=== PATIENT | female | born 1970 | race Caucasian/White ===

== ENCOUNTER 2021-05-23 22:07 | Observation (INO) | payer OTHER ==
[~2021-05-23] VITALS: Ht 162.5 cm; Wt 87.2 kg
[2021-05-23 22:10] VITALS: BP 124/64
[2021-05-23 22:33] LABS: BASO # 0.1 10*3/uL (0.0-0.1); BASO % 0.5 % (0.0-1.0); EOS # 0.6 10*3/uL (0.0-0.4); EOS % 4.1 % (1.0-4.0); HEMATOCRIT 38.4 % (37.0-47.0); LYMPH # 2.7 10*3/uL (1.3-4.4); LYMPH % 18.8 % (27.0-41.0); MEAN CELL VOLUME 93.4 fl (81.0-99.0); MEAN CORPUSCULAR HGB 28.7 pg (27.0-31.0); MEAN CORPUSCULAR HGB CONC 30.7 g/dl (33.0-37.0); MONO % 6.5 % (3.0-9.0); NEUT # 10.1 10*3/uL (2.3-7.9); NEUT % 69.3 % (47.0-73.0); PLATELET COUNT AUTOMATED 476 10*3/uL (130-400); RED BLOOD COUNT 4.11 10*6/uL (4.10-5.10); RED CELL DISTRI WIDTH 14.1 % (0-14.5); WHITE BLOOD COUNT 14.6 10*3/uL (4.8-10.8)
[2021-05-23 22:48] LABS: ACT PARTIAL THROMBO TIME 23.4 SECONDS (20.0-32.1)
[2021-05-23 22:57] LABS: ALBUMIN 2.7 gm/dl (3.1-4.5); ALKALINE PHOSPHATASE 117 U/L (45-117); BUN 19 mg/dl (7-24); CHLORIDE 107 mmol/L (98-107); CREATININE 0.97 mg/dL (0.55-1.02); POTASSIUM 3.6 mmol/L (3.5-5.1); SGOT/AST 7 IU/L (3-35); SGPT/ALT 17 U/L (12-78); SODIUM 142 mmol/L (136-145); TOTAL PROTEIN 6.8 gm/dL (6.4-8.2)
[2021-05-24] VITALS (7 sets, daily range): BP systolic 95–126; BP diastolic 44–80
[2021-05-24] MEDS ORDERED: NEURONTIN300 MG PO ×2 (05:16→05:18)
[2021-05-24] MEDS ORDERED: ATORVASTATIN CA40 M1 PO (05:17)
[2021-05-24] MEDS ORDERED: HYDROXYZINE HCL25 MG PO (05:18)
[2021-05-24] MEDS ORDERED: SERTRALINE HYD100 MG PO (05:18)
[2021-05-24] MEDS ORDERED: METFORMIN HYDR500 MG PO (05:18)
[2021-05-24] MEDS ORDERED: RISPERIDONE2 M2 PO (05:19)
[2021-05-24] MEDS ORDERED: PROAIR HFA8.5 GM INH (05:20)
[2021-05-24] MEDS ORDERED: BUDESONIDE-FO10.2 G1 PO (05:20)
[2021-05-24 06:54] LABS: BASO # 0.1 10*3/uL (0.0-0.1); BASO % 0.4 % (0.0-1.0); EOS # 0.5 10*3/uL (0.0-0.4); EOS % 3.3 % (1.0-4.0); HEMATOCRIT 34.5 % (37.0-47.0); LYMPH # 3.6 10*3/uL (1.3-4.4); LYMPH % 21.6 % (27.0-41.0); MEAN CELL VOLUME 92.7 fl (81.0-99.0); MEAN CORPUSCULAR HGB 28.8 pg (27.0-31.0); MEAN PLATELET VOLUME 9.5 fl (9.6-12.3); MONO # 1.1 10*3/uL (0.1-1.0); MONO % 6.9 % (3.0-9.0); NEUT # 11.1 10*3/uL (2.3-7.9); NEUT % 67.1 % (47.0-73.0); PLATELET COUNT AUTOMATED 466 10*3/uL (130-400); RED BLOOD COUNT 3.72 10*6/uL (4.10-5.10); RED CELL DISTRI WIDTH 14.3 % (0-14.5); WHITE BLOOD COUNT 16.5 10*3/uL (4.8-10.8)
[2021-05-24 07:07] LABS: ALBUMIN 2.5 gm/dl (3.1-4.5); ALKALINE PHOSPHATASE 104 U/L (45-117); BUN 17 mg/dl (7-24); CHLORIDE 106 mmol/L (98-107); CHOLESTEROL 116 mg/dL (<200); CREATININE 0.81 mg/dL (0.55-1.02); LDL CHOLESTEROL 46 mg/dL (9-159); POTASSIUM 3.6 mmol/L (3.5-5.1); SGOT/AST 7 IU/L (3-35); SGPT/ALT 15 U/L (12-78); SODIUM 141 mmol/L (136-145); TOTAL PROTEIN 6.3 gm/dL (6.4-8.2); TRIGLYCERIDES 142 mg/dl (<150)
[2021-05-24 07:08] LABS: FREE T4 0.91 ng/dl (0.76-1.46)
[2021-05-24 08:12] LABS: VITAMIN D, 25-HYDROXY 37.2 ng/mL (30-100)
[2021-05-24] MEDS ORDERED: ZONISAMIDE100 MG PO (09:08)
[2021-05-25] VITALS: BP 118/70
[2021-05-25 07:23] LABS: BASO # 0.1 10*3/uL (0.0-0.1); BASO % 0.5 % (0.0-1.0); EOS # 0.3 10*3/uL (0.0-0.4); EOS % 1.6 % (1.0-4.0); HEMATOCRIT 35.8 % (37.0-47.0); LYMPH # 3.4 10*3/uL (1.3-4.4); LYMPH % 21.3 % (27.0-41.0); MEAN CELL VOLUME 95.7 fl (81.0-99.0); MEAN CORPUSCULAR HGB 28.3 pg (27.0-31.0); MEAN CORPUSCULAR HGB CONC 29.6 g/dl (33.0-37.0); MEAN PLATELET VOLUME 9.3 fl (9.6-12.3); MONO # 1.3 10*3/uL (0.1-1.0); NEUT # 10.9 10*3/uL (2.3-7.9); PLATELET COUNT AUTOMATED 440 10*3/uL (130-400); RED BLOOD COUNT 3.74 10*6/uL (4.10-5.10); RED CELL DISTRI WIDTH 14.2 % (0-14.5)
[2021-05-25 07:42] LABS: BUN 19 mg/dl (7-24); CHLORIDE 108 mmol/L (98-107); CREATININE 0.74 mg/dL (0.55-1.02); POTASSIUM 3.8 mmol/L (3.5-5.1); SODIUM 139 mmol/L (136-145)
[2021-05-25 08:00] VITALS: BP 139/79
[2021-05-25] MEDS ORDERED: PREDNISONE10 MG PO (11:38)
[2021-05-25] MEDS ORDERED: ZITHROMAX250 MG PO (11:38)
[2021-05-25] MEDS ORDERED: OMNICEF300 MG PO (11:38)
[2021-05-25 12:00] VITALS: BP 123/72
== END 2021-05-25 18:17 | disposition home or self-care (01) ==
LOC: ED 22:07 → EDHOLD 05-24 04:26 → 4E 05-24 04:26
PROVIDERS: Emergency Medicine; Internal Medicine; ADMIT Family Medicine; ATTEND Family Medicine
DX: A41.9 Sepsis, unspecified organism (principal); J44.1 Chronic obstructive pulmonary disease with (acute) exacerbation; J18.9 Pneumonia, unspecified organism; D72.829 Elevated white blood cell count, unspecified; E43 Unspecified severe protein-calorie malnutrition; Z20.822 Contact with and (suspected) exposure to COVID-19; R00.0 Tachycardia, unspecified; R06.82 Tachypnea, not elsewhere classified; D64.9 Anemia, unspecified; D75.839 Thrombocytosis, unspecified; R79.89 Other specified abnormal findings of blood chemistry; F17.210 Nicotine dependence, cigarettes, uncomplicated; E11.65 Type 2 diabetes mellitus with hyperglycemia; G40.909 Epilepsy, unspecified, not intractable, without status epilepticus; F32.9 Major depressive disorder, single episode, unspecified; F32.A Depression, unspecified; E53.8 Deficiency of other specified B group vitamins; Z68.33 Body mass index [BMI] 33.0-33.9, adult; Z71.6 Tobacco abuse counseling; Z79.899 Other long term (current) drug therapy; Z79.01 Long term (current) use of anticoagulants

== ENCOUNTER 2021-06-10 22:17 | Emergency (ER) | payer OTHER ==
[~2021-06-10] VITALS: Ht 165.1 cm; Wt 88.0 kg
[~2021-06-10 22:17] MED LIST: ATORVASTATIN CA40 M1 PO; BUDESONIDE-FO10.2 G1 PO; HYDROXYZINE HCL25 MG PO; METFORMIN HYDR500 MG PO; NEURONTIN300 MG PO; OMNICEF300 MG PO; PREDNISONE10 MG PO; PROAIR HFA8.5 GM INH; RISPERIDONE2 M2 PO; SERTRALINE HYD100 MG PO; ZITHROMAX250 MG PO; ZONISAMIDE100 MG PO
[2021-06-10 22:38] LABS: BASO # 0.1 10*3/uL (0.0-0.1); BASO % 0.5 % (0.0-1.0); EOS # 0.6 10*3/uL (0.0-0.4); EOS % 4.6 % (1.0-4.0); HEMATOCRIT 35.5 % (37.0-47.0); LYMPH # 2.4 10*3/uL (1.3-4.4); LYMPH % 19.5 % (27.0-41.0); MEAN CELL VOLUME 95.4 fl (81.0-99.0); MEAN CORPUSCULAR HGB 28.8 pg (27.0-31.0); MEAN CORPUSCULAR HGB CONC 30.1 g/dl (33.0-37.0); MEAN PLATELET VOLUME 9.3 fl (9.6-12.3); MONO % 8.2 % (3.0-9.0); NEUT # 8.2 10*3/uL (2.3-7.9); NEUT % 66.8 % (47.0-73.0); PLATELET COUNT AUTOMATED 446 10*3/uL (130-400); RED BLOOD COUNT 3.72 10*6/uL (4.10-5.10); RED CELL DISTRI WIDTH 13.9 % (0-14.5); WHITE BLOOD COUNT 12.3 10*3/uL (4.8-10.8)
[2021-06-10 22:51] LABS: BUN 12 mg/dl (7-24); CHLORIDE 107 mmol/L (98-107); POTASSIUM 4.1 mmol/L (3.5-5.1); SODIUM 143 mmol/L (136-145)
[2021-06-11] MEDS ORDERED: PREDNISONE20 M1 PO (02:24)
[2021-06-11] MEDS ORDERED: ZITHROMAX250 MG PO (02:24)
== END 2021-06-11 04:42 | disposition home or self-care (01) ==
LOC: ED 22:17
PROVIDERS: Internal Medicine
DX: J44.1 Chronic obstructive pulmonary disease with (acute) exacerbation (principal); D72.829 Elevated white blood cell count, unspecified; D64.9 Anemia, unspecified; F17.200 Nicotine dependence, unspecified, uncomplicated; Z91.030 Bee allergy status; Z88.2 Allergy status to sulfonamides; Z79.899 Other long term (current) drug therapy

== ENCOUNTER 2022-08-13 15:45 | Emergency (ER) | payer OTHER ==
[~2022-08-13] VITALS: Ht 165.1 cm; Wt 99.3 kg
[~2022-08-13 15:45] MED LIST changes: +PREDNISONE20 M1 PO
[2022-08-13 16:34] LABS: BASO # 0.1 10*3/uL (0.0-0.1); BASO % 0.5 % (0.0-1.0); EOS # 0.7 10*3/uL (0.0-0.4); EOS % 6.3 % (1.0-4.0); HEMATOCRIT 33.1 % (37.0-47.0); LYMPH # 2.3 10*3/uL (1.3-4.4); LYMPH % 19.6 % (27.0-41.0); MEAN CELL VOLUME 97.1 fl (81.0-99.0); MEAN CORPUSCULAR HGB 27.6 pg (27.0-31.0); MEAN CORPUSCULAR HGB CONC 28.4 g/dl (33.0-37.0); MEAN PLATELET VOLUME 9.3 fl (9.6-12.3); MONO # 0.9 10*3/uL (0.1-1.0); MONO % 7.9 % (3.0-9.0); NEUT # 7.5 10*3/uL (2.3-7.9); NEUT % 64.5 % (47.0-73.0); PLATELET COUNT AUTOMATED 405 10*3/uL (130-400); RED BLOOD COUNT 3.41 10*6/uL (4.10-5.10); RED CELL DISTRI WIDTH 15.9 % (0-14.5); WHITE BLOOD COUNT 11.6 10*3/uL (4.8-10.8)
[2022-08-13 16:51] LABS: ALKALINE PHOSPHATASE 118 U/L (46-116); BUN < 5 mg/dl (9-23); CHLORIDE 102 mmol/L (98-107); POTASSIUM 3.7 mmol/L (3.4-5.1); SGPT/ALT 10 U/L (10-49); TOTAL PROTEIN 5.7 gm/dL (6.0-8.0)
[2022-08-13] MEDS ORDERED: CEFDINIR300 MG PO (19:38)
[2022-08-13] MEDS ORDERED: PROVENTIL HFA6.7 GM PO (19:38)
[2022-08-13] MEDS ORDERED: Ondansetron4 MG PO (19:38)
[2022-08-13 19:46] LABS: BILIRUBIN Negative (Negative); BLOOD 2+ (Negative); CLARITY Turbid (Clear); COLOR Yellow (Yellow); GLUCOSE Negative (Negative); KETONE Negative (Negative); LEUKO ESTERASE 3+ (Negative); NITRITE Positive (Negative); PH 5.5 (4.5-8.0); UROBILINOGEN 0.2 E.U./dl (0.0-1.0)
[2022-08-13 19:53] LABS: BACTERIA 4+; EPITHELIAL CELLS 0-2; WBC TNTC wbc/hpf (0-5)
== END 2022-08-13 20:06 | disposition home or self-care (01) ==
LOC: ED 15:45
PROVIDERS: Student in an Organized Health Care Education/Training Program
DX: R30.0 Dysuria (principal); R11.2 Nausea with vomiting, unspecified; J44.9 Chronic obstructive pulmonary disease, unspecified; E11.9 Type 2 diabetes mellitus without complications; Z91.030 Bee allergy status; Z88.2 Allergy status to sulfonamides; Z90.49 Acquired absence of other specified parts of digestive tract; F17.200 Nicotine dependence, unspecified, uncomplicated

== ENCOUNTER 2022-12-07 15:47 | Inpatient (IN) | payer OTHER ==
[~2022-12-07] VITALS: Ht 162.5 cm; Wt 87.3 kg
[~2022-12-07 15:47] MED LIST changes: +CEFDINIR300 MG PO; +Ondansetron4 MG PO; +PROVENTIL HFA6.7 GM PO
[2022-12-07 15:51] VITALS: BP 108/74
[2022-12-07 16:12] LABS: BASO % 0.3 % (0.0-1.0); EOS # 0.3 10*3/uL (0.0-0.4); EOS % 3.4 % (1.0-4.0); HEMATOCRIT 33.8 % (37.0-47.0); LYMPH # 0.8 10*3/uL (1.3-4.4); LYMPH % 8.2 % (27.0-41.0); MEAN CELL VOLUME 100.3 fl (81.0-99.0); MEAN CORPUSCULAR HGB CONC 29.9 g/dl (33.0-37.0); MEAN PLATELET VOLUME 9.2 fl (9.6-12.3); MONO # 0.7 10*3/uL (0.1-1.0); MONO % 7.5 % (3.0-9.0); NEUT # 7.7 10*3/uL (2.3-7.9); NEUT % 80.1 % (47.0-73.0); PLATELET COUNT AUTOMATED 332 10*3/uL (130-400); RED BLOOD COUNT 3.37 10*6/uL (4.10-5.10); RED CELL DISTRI WIDTH 14.7 % (0-14.5); WHITE BLOOD COUNT 9.7 10*3/uL (4.8-10.8)
[2022-12-07 16:25] LABS: ACT PARTIAL THROMBO TIME 22.2 SECONDS (20.0-32.1)
[2022-12-07 16:36] LABS: ALKALINE PHOSPHATASE 93 U/L (46-116); CHLORIDE 105 mmol/L (98-107); LIPASE 26 U/L (12-53); POTASSIUM 3.9 mmol/L (3.4-5.1); SGPT/ALT 17 U/L (10-49); TOTAL PROTEIN 5.6 gm/dL (6.0-8.0)
[2022-12-07 16:39] LABS: BUN < 5 mg/dl (9-23)
[2022-12-07 17:01] VITALS: BP 117/75
[2022-12-07 18:11] VITALS: BP 110/71
[2022-12-07] MEDS ORDERED: IRON325 M3 PO (18:44)
[2022-12-07 19:12] VITALS: BP 129/88
[2022-12-08] VITALS: BP 150/88
[2022-12-08 05:50] LABS: VITAMIN D, 25-HYDROXY 24.4 ng/mL (30-100)
[2022-12-08 06:27] LABS: HEMATOCRIT 35.2 % (37.0-47.0); MEAN CORPUSCULAR HGB 30.1 pg (27.0-31.0); MEAN CORPUSCULAR HGB CONC 30.1 g/dl (33.0-37.0); MEAN PLATELET VOLUME 9.8 fl (9.6-12.3); PLATELET COUNT AUTOMATED 360 10*3/uL (130-400); RED BLOOD COUNT 3.52 10*6/uL (4.10-5.10); RED CELL DISTRI WIDTH 14.7 % (0-14.5); WHITE BLOOD COUNT 6.4 10*3/uL (4.8-10.8)
[2022-12-08 06:28] LABS: MANUAL DIFF REFLEX YES
[2022-12-08 06:39] LABS: BUN 7 mg/dl (9-23); CHLORIDE 100 mmol/L (98-107); CHOLESTEROL 112 mg/dL (<200); FREE T4 1.12 ng/dl (0.89-1.76); LDL CHOLESTEROL 40 mg/dL (9-159); POTASSIUM 4.6 mmol/L (3.4-5.1); THYROID STIM HORMONE (HS) 0.427 uIU/ml (0.550-4.780); TRIGLYCERIDES 54 mg/dl (<150)
[2022-12-08 07:08] LABS: BASOPHILS 1 % (0-1); TOTAL CELLS COUNTED 100 #CELLS
[2022-12-08 07:09] LABS: OVALOCYTES FEW; PLATELET SUFFICIENCY NORMAL (NORMAL); POLYCHROMASIA SLIGHT
[2022-12-08 08:00] VITALS: BP 135/76
[2022-12-08 12:00] VITALS: BP 145/98
[2022-12-08 16:00] VITALS: BP 134/78
[2022-12-08 20:00] VITALS: BP 133/76
[2022-12-09] VITALS: BP 136/72
[2022-12-09 05:33] LABS: BUN 13 mg/dl (9-23); CHLORIDE 101 mmol/L (98-107); POTASSIUM 4.7 mmol/L (3.4-5.1)
[2022-12-09 06:24] LABS: BASO % 0.1 % (0.0-1.0); HEMATOCRIT 35.2 % (37.0-47.0); LYMPH # 0.6 10*3/uL (1.3-4.4); LYMPH % 6.1 % (27.0-41.0); MEAN CELL VOLUME 98.9 fl (81.0-99.0); MEAN CORPUSCULAR HGB 29.5 pg (27.0-31.0); MEAN CORPUSCULAR HGB CONC 29.8 g/dl (33.0-37.0); MEAN PLATELET VOLUME 9.7 fl (9.6-12.3); MONO # 0.5 10*3/uL (0.1-1.0); MONO % 4.7 % (3.0-9.0); NEUT # 8.4 10*3/uL (2.3-7.9); NEUT % 88.6 % (47.0-73.0); PLATELET COUNT AUTOMATED 381 10*3/uL (130-400); RED BLOOD COUNT 3.56 10*6/uL (4.10-5.10); RED CELL DISTRI WIDTH 14.6 % (0-14.5); WHITE BLOOD COUNT 9.5 10*3/uL (4.8-10.8)
[2022-12-09 08:00] VITALS: BP 127/88
[2022-12-09 12:00] VITALS: BP 129/81
[2022-12-09 16:00] VITALS: BP 136/75
[2022-12-09 20:00] VITALS: BP 132/78
[2022-12-10] VITALS: BP 146/87
[2022-12-10 05:15] LABS: BUN 18 mg/dl (9-23); CHLORIDE 100 mmol/L (98-107)
[2022-12-10 06:09] LABS: BASO % 0.1 % (0.0-1.0); HEMATOCRIT 35.2 % (37.0-47.0); LYMPH # 0.9 10*3/uL (1.3-4.4); LYMPH % 8.2 % (27.0-41.0); MEAN CELL VOLUME 98.6 fl (81.0-99.0); MEAN CORPUSCULAR HGB 29.4 pg (27.0-31.0); MEAN CORPUSCULAR HGB CONC 29.8 g/dl (33.0-37.0); MEAN PLATELET VOLUME 9.6 fl (9.6-12.3); MONO # 0.5 10*3/uL (0.1-1.0); MONO % 4.2 % (3.0-9.0); NEUT # 9.9 10*3/uL (2.3-7.9); NEUT % 87.1 % (47.0-73.0); PLATELET COUNT AUTOMATED 429 10*3/uL (130-400); RED BLOOD COUNT 3.57 10*6/uL (4.10-5.10); RED CELL DISTRI WIDTH 14.5 % (0-14.5); WHITE BLOOD COUNT 11.3 10*3/uL (4.8-10.8)
[2022-12-10 08:00] VITALS: BP 146/84
[2022-12-10 12:00] VITALS: BP 135/76
[2022-12-10 16:00] VITALS: BP 145/91
[2022-12-10 20:00] VITALS: BP 134/79
[2022-12-11] VITALS: BP 112/76
[2022-12-11 06:08] LABS: BASO % 0.1 % (0.0-1.0); LYMPH # 2.3 10*3/uL (1.3-4.4); LYMPH % 19.3 % (27.0-41.0); MEAN CELL VOLUME 98.9 fl (81.0-99.0); MEAN CORPUSCULAR HGB 29.9 pg (27.0-31.0); MEAN CORPUSCULAR HGB CONC 30.3 g/dl (33.0-37.0); MEAN PLATELET VOLUME 10.1 fl (9.6-12.3); MONO # 1.2 10*3/uL (0.1-1.0); NEUT # 8.4 10*3/uL (2.3-7.9); NEUT % 70.1 % (47.0-73.0); PLATELET COUNT AUTOMATED 370 10*3/uL (130-400); RED BLOOD COUNT 3.54 10*6/uL (4.10-5.10); RED CELL DISTRI WIDTH 14.4 % (0-14.5)
[2022-12-11 06:40] LABS: BUN 19 mg/dl (9-23); CHLORIDE 97 mmol/L (98-107); POTASSIUM 4.8 mmol/L (3.4-5.1)
[2022-12-11 08:00] VITALS: BP 125/72
[2022-12-11 12:00] VITALS: BP 130/74
[2022-12-11 16:00] VITALS: BP 131/73
[2022-12-11 20:00] VITALS: BP 126/76
[2022-12-12] VITALS: BP 134/73
[2022-12-12 06:23] LABS: BASO % 0.1 % (0.0-1.0); HEMATOCRIT 35.7 % (37.0-47.0); LYMPH # 0.7 10*3/uL (1.3-4.4); LYMPH % 6.9 % (27.0-41.0); MEAN CELL VOLUME 96.2 fl (81.0-99.0); MEAN CORPUSCULAR HGB 29.6 pg (27.0-31.0); MEAN CORPUSCULAR HGB CONC 30.8 g/dl (33.0-37.0); MEAN PLATELET VOLUME 10.2 fl (9.6-12.3); MONO # 0.5 10*3/uL (0.1-1.0); MONO % 4.9 % (3.0-9.0); NEUT % 87.3 % (47.0-73.0); PLATELET COUNT AUTOMATED 400 10*3/uL (130-400); RED BLOOD COUNT 3.71 10*6/uL (4.10-5.10); WHITE BLOOD COUNT 10.3 10*3/uL (4.8-10.8)
[2022-12-12 06:31] LABS: BUN 21 mg/dl (9-23); CHLORIDE 95 mmol/L (98-107)
[2022-12-12 08:00] VITALS: BP 113/71
[2022-12-12] MEDS ORDERED: PREDNISONE10 MG PO (10:48)
[2022-12-12] MEDS ORDERED: NICODERM CQ1 EAC2 T (10:48)
[2022-12-12] MEDS ORDERED: ZITHROMAX TRI-500 M1 PO (10:48)
== END 2022-12-12 12:16 | disposition home or self-care (01) | DRG 194 ==
LOC: ED 15:47 → 4E 18:16 → EDHOLD 18:16 → 4E 20:06
PROVIDERS: Emergency Medicine; Internal Medicine; Occupational Therapist; Student in an Organized Health Care Education/Training Program; ADMIT Internal Medicine; ATTEND Internal Medicine
PROC: 5A09357 Assistance with Respiratory Ventilation, Less than 24 Consecutive Hours, Continuous Positive Airway Pressure (ICD-10-PCS; principal; 2022-12-07)
PROC: 5A09357 Assistance with Respiratory Ventilation, Less than 24 Consecutive Hours, Continuous Positive Airway Pressure (ICD-10-PCS; 2022-12-08)
DX: I11.0 Hypertensive heart disease with heart failure (principal); J44.1 Chronic obstructive pulmonary disease with (acute) exacerbation; I50.31 Acute diastolic (congestive) heart failure; D50.9 Iron deficiency anemia, unspecified; F32.A Depression, unspecified; E44.0 Moderate protein-calorie malnutrition; F17.210 Nicotine dependence, cigarettes, uncomplicated; D53.9 Nutritional anemia, unspecified; J45.909 Unspecified asthma, uncomplicated; J96.12 Chronic respiratory failure with hypercapnia; E11.65 Type 2 diabetes mellitus with hyperglycemia; G40.909 Epilepsy, unspecified, not intractable, without status epilepticus; E78.5 Hyperlipidemia, unspecified; E53.8 Deficiency of other specified B group vitamins; Z71.6 Tobacco abuse counseling; Z90.49 Acquired absence of other specified parts of digestive tract; Z82.3 Family history of stroke; Z88.2 Allergy status to sulfonamides; Z91.030 Bee allergy status; Z79.84 Long term (current) use of oral hypoglycemic drugs; Z79.899 Other long term (current) drug therapy; Z68.35 Body mass index [BMI] 35.0-35.9, adult

== ENCOUNTER 2023-10-01 19:25 | Emergency (ER) | payer MEDICAID ==
[~2023-10-01] VITALS: Ht 167.6 cm; Wt 127.0 kg
[~2023-10-01 19:25] MED LIST changes: +AMMONIUM LACTA227 GM T; +ANTIFUNGAL POWD85 G1 T; +DOXYCYCLINE MO100 MG PO; +FUROSEMIDE20 M1 PO; +Humalog SQ; +IRON325 M3 PO; +Ipratropium Brom3 ML NEB; +Lantus SC; +NICODERM CQ1 EAC2 T; +ZITHROMAX TRI-500 M1 PO
[2023-10-01 20:07] LABS: BASO # 0.1 10*3/uL (0.0-0.1); BASO % 0.5 % (0.0-1.0); EOS # 0.5 10*3/uL (0.0-0.4); EOS % 3.5 % (1.0-4.0); LYMPH # 3.1 10*3/uL (1.3-4.4); MEAN CELL VOLUME 94.2 fl (81.0-99.0); MEAN CORPUSCULAR HGB 27.4 pg (27.0-31.0); MEAN CORPUSCULAR HGB CONC 29.1 g/dl (33.0-37.0); MEAN PLATELET VOLUME 9.5 fl (9.6-12.3); MONO # 1.1 10*3/uL (0.1-1.0); NEUT # 10.5 10*3/uL (2.3-7.9); NEUT % 68.2 % (47.0-73.0); PLATELET COUNT AUTOMATED 415 10*3/uL (130-400); RED BLOOD COUNT 3.61 10*6/uL (4.10-5.10); RED CELL DISTRI WIDTH 14.2 % (0-14.5); WHITE BLOOD COUNT 15.4 10*3/uL (4.8-10.8)
[2023-10-01 20:26] LABS: BUN 16 mg/dl (9-23); CHLORIDE 101 mmol/L (98-107); POTASSIUM 4.5 mmol/L (3.4-5.1)
[2023-10-01 20:39] LABS: BILIRUBIN Negative (Negative); BLOOD Negative (Negative); CLARITY Clear (Clear); COLOR Yellow (Yellow); GLUCOSE Trace (Negative); KETONE Negative (Negative); LEUKO ESTERASE Negative (Negative); NITRITE Negative (Negative); UROBILINOGEN 0.2 E.U./dl (0.0-1.0)
[2023-10-01 20:48] LABS: WBC 0-2 wbc/hpf (0-5)
[2023-10-01] MEDS ORDERED: IBUPROFEN 800 MG TAB PO ONE (22:25)
== END 2023-10-01 22:57 | disposition home or self-care (01) ==
LOC: ED 19:25
PROVIDERS: Nurse Practitioner Family
DX: D72.829 Elevated white blood cell count, unspecified (principal); J44.9 Chronic obstructive pulmonary disease, unspecified; D64.9 Anemia, unspecified; G40.909 Epilepsy, unspecified, not intractable, without status epilepticus; J45.909 Unspecified asthma, uncomplicated; E78.00 Pure hypercholesterolemia, unspecified; F31.9 Bipolar disorder, unspecified; Z91.030 Bee allergy status; Z88.2 Allergy status to sulfonamides; Z90.49 Acquired absence of other specified parts of digestive tract; F17.200 Nicotine dependence, unspecified, uncomplicated

== ENCOUNTER 2023-12-21 16:44 | Inpatient (IN) | payer MEDICAID ==
[~2023-12-21] VITALS: Ht 162.5 cm; Wt 108.0 kg
[2023-12-21] MEDS ORDERED: methylPREDNISolone sod succ 125 MG VIAL IV ONE (16:50)
[2023-12-21] MEDS ORDERED: LORazepam 2 MG/ML VIAL IV ONE ×2 (16:50→20:40)
[2023-12-21 17:03] VITALS: BP 137/101
[2023-12-21 17:35] LABS: BASO # 0.1 10*3/uL (0.0-0.1); BASO % 0.4 % (0.0-1.0); EOS # 0.1 10*3/uL (0.0-0.4); EOS % 0.4 % (1.0-4.0); HEMATOCRIT 36.4 % (37.0-47.0); LYMPH # 1.3 10*3/uL (1.3-4.4); MEAN CELL VOLUME 94.8 fl (81.0-99.0); MEAN CORPUSCULAR HGB 27.1 pg (27.0-31.0); MEAN CORPUSCULAR HGB CONC 28.6 g/dl (33.0-37.0); MEAN PLATELET VOLUME 9.5 fl (9.6-12.3); MONO # 1.4 10*3/uL (0.1-1.0); MONO % 6.6 % (3.0-9.0); NEUT # 17.8 10*3/uL (2.3-7.9); NEUT % 85.8 % (47.0-73.0); PLATELET COUNT AUTOMATED 419 10*3/uL (130-400); RED BLOOD COUNT 3.84 10*6/uL (4.10-5.10); RED CELL DISTRI WIDTH 15.5 % (0-14.5); WHITE BLOOD COUNT 20.8 10*3/uL (4.8-10.8)
[2023-12-21] MEDS ORDERED: SODIUM CHLORIDE 0.9% 1,000 ML IV SCH (17:40)
[2023-12-21] MEDS ORDERED: AZITHROMYCIN 250 ML IV ONE (17:40)
[2023-12-21] MEDS ORDERED: Ceftriaxone Sodium 1 GM/10 ML SYR IV ONE (17:40)
[2023-12-21 17:56] LABS: ALKALINE PHOSPHATASE 158 U/L (46-116); BUN 6 mg/dl (9-23); CHLORIDE 102 mmol/L (98-107); POTASSIUM 4.2 mmol/L (3.4-5.1); SGPT/ALT 31 U/L (5-49); TOTAL PROTEIN 6.5 gm/dL (6.0-8.0)
[2023-12-21 18:57] VITALS: BP 123/85
[2023-12-21] MEDS ORDERED: ACETAMINOPHEN 325 MG TAB PO PRN (19:20)
[2023-12-21 19:55] LABS: ABG BASE EXCESS 0.3 mmol/L (-2.0-2.0); ARTERIAL BLOOD GAS PH 7.203 (7.35-7.45)
[2023-12-21] MEDS ORDERED: DEXTROSE 10 % IN WATER 250 ML IV PRN (20:10)
[2023-12-21 20:16] VITALS: BP 116/86
[2023-12-21] MEDS ORDERED: INSULIN LISPRO 1 UNIT/0.01 ML SQ SCH (22:00)
[2023-12-21 22:12] VITALS: BP 120/79
[2023-12-22 00:50] VITALS: BP 125/83
[2023-12-22] MEDS ORDERED: Albuterol Sulf/Ipratropium 3 ML VIAL NEB SCH (02:20)
[2023-12-22 03:59] LABS: HEMATOCRIT 38.6 % (37.0-47.0); MEAN CORPUSCULAR HGB 26.9 pg (27.0-31.0); MEAN CORPUSCULAR HGB CONC 27.7 g/dl (33.0-37.0); MEAN PLATELET VOLUME 9.7 fl (9.6-12.3); PLATELET COUNT AUTOMATED 429 10*3/uL (130-400); RED BLOOD COUNT 3.98 10*6/uL (4.10-5.10); RED CELL DISTRI WIDTH 15.5 % (0-14.5); WHITE BLOOD COUNT 22.4 10*3/uL (4.8-10.8)
[2023-12-22 04:02] LABS: MANUAL DIFF REFLEX YES
[2023-12-22 04:20] LABS: BURR CELLS FEW; PLATELET SUFFICIENCY HIGH (NORMAL); TOTAL CELLS COUNTED 100 #CELLS
[2023-12-22 04:21] LABS: OVALOCYTES FEW; ROULEAUX SLIGHT
[2023-12-22 04:25] LABS: ALKALINE PHOSPHATASE 360 U/L (46-116); BUN 8 mg/dl (9-23); CHLORIDE 104 mmol/L (98-107); SGPT/ALT 72 U/L (5-49); TOTAL PROTEIN 6.5 gm/dL (6.0-8.0)
[2023-12-22 06:00] VITALS: BP 112/63
[2023-12-22 07:12] LABS: ABG BASE EXCESS 0.4 mmol/L (-2.0-2.0); ARTERIAL BLOOD GAS PH 7.225 (7.35-7.45)
[2023-12-22] MEDS ORDERED: ATORVASTATIN CA40 M1 PO (07:45)
[2023-12-22] MEDS ORDERED: GUAIFENESIN 600 MG TAB ER PO SCH (10:00)
[2023-12-22] MEDS ORDERED: Enoxaparin Sodium 40 MG/0.4 ML SYR SC SCH (10:00)
[2023-12-22] MEDS ORDERED: methylPREDNISolone sod succ 40 MG VIAL IV SCH (10:00)
[2023-12-22] MEDS ORDERED: FUROSEMIDE 20 MG/2 ML VIAL IV ONE (10:40)
[2023-12-22 12:00] VITALS: BP 115/65
[2023-12-22 15:44] VITALS: BP 113/71
[2023-12-22 16:00] VITALS: BP 113/71
[2023-12-22] MEDS ORDERED: AZITHROMYCIN 250 ML IV SCH (17:00)
[2023-12-22] MEDS ORDERED: Ceftriaxone Sodium 1 GM in SYRINGE INFUSION 10 ML IV SCH (18:00)
[2023-12-22 20:00] VITALS: BP 113/65
[2023-12-22] MEDS ORDERED: RISPERIDONE 2 MG TAB PO SCH (22:00)
[2023-12-23] VITALS: BP 111/69
[2023-12-23 07:04] LABS: HEMATOCRIT 32.5 % (37.0-47.0); MEAN CELL VOLUME 94.2 fl (81.0-99.0); MEAN CORPUSCULAR HGB 27.2 pg (27.0-31.0); MEAN CORPUSCULAR HGB CONC 28.9 g/dl (33.0-37.0); MEAN PLATELET VOLUME 9.4 fl (9.6-12.3); PLATELET COUNT AUTOMATED 398 10*3/uL (130-400); RED BLOOD COUNT 3.45 10*6/uL (4.10-5.10); RED CELL DISTRI WIDTH 15.4 % (0-14.5); WHITE BLOOD COUNT 16.6 10*3/uL (4.8-10.8)
[2023-12-23 07:18] LABS: MANUAL DIFF REFLEX YES
[2023-12-23 07:27] LABS: ALKALINE PHOSPHATASE 250 U/L (46-116); BUN 17 mg/dl (9-23); CHLORIDE 102 mmol/L (98-107); FREE T4 0.84 ng/dl (0.89-1.76); POTASSIUM 4.9 mmol/L (3.4-5.1); SGPT/ALT 65 U/L (5-49)
[2023-12-23 07:48] LABS: PLATELET SUFFICIENCY NORMAL (NORMAL); POLYCHROMASIA SLIGHT; TOTAL CELLS COUNTED 100 #CELLS
[2023-12-23 08:00] VITALS: BP 116/71; BP 127/71
[2023-12-23] MEDS ORDERED: Sertraline Hydrochloride 50 MG TAB PO SCH (10:00)
[2023-12-23] MEDS ORDERED: ATORVASTATIN CALCIUM 40 MG TABLET PO SCH (10:00)
[2023-12-23 12:00] VITALS: BP 109/72
[2023-12-23] MEDS ORDERED: FUROSEMIDE 40 MG/4 ML VIAL IV SCH (12:20)
[2023-12-23 12:54] VITALS: BP 102/56
[2023-12-23 13:32] LABS: ARTERIAL BLOOD GAS PH 7.302 (7.35-7.45)
[2023-12-23] MEDS ORDERED: LEVETIRACETAM 500 MG TAB PO SCH ×2 (13:52→14:00)
[2023-12-23 16:00] VITALS: BP 118/67
[2023-12-23 20:00] VITALS: BP 115/66
[2023-12-24] VITALS: BP 95/54
[2023-12-24 06:00] LABS: ALKALINE PHOSPHATASE 227 U/L (46-116); BUN 21 mg/dl (9-23); CHLORIDE 98 mmol/L (98-107); POTASSIUM 4.5 mmol/L (3.4-5.1); SGPT/ALT 111 U/L (5-49); TOTAL PROTEIN 5.8 gm/dL (6.0-8.0)
[2023-12-24 06:01] LABS: BASO % 0.1 % (0.0-1.0); LYMPH % 7.9 % (27.0-41.0); MEAN CELL VOLUME 95.8 fl (81.0-99.0); MEAN CORPUSCULAR HGB 26.9 pg (27.0-31.0); MEAN CORPUSCULAR HGB CONC 28.1 g/dl (33.0-37.0); MEAN PLATELET VOLUME 9.8 fl (9.6-12.3); MONO # 0.4 10*3/uL (0.1-1.0); MONO % 3.3 % (3.0-9.0); NEUT # 10.7 10*3/uL (2.3-7.9); PLATELET COUNT AUTOMATED 393 10*3/uL (130-400); RED BLOOD COUNT 3.34 10*6/uL (4.10-5.10); RED CELL DISTRI WIDTH 15.3 % (0-14.5); WHITE BLOOD COUNT 12.1 10*3/uL (4.8-10.8)
[2023-12-24 08:00] VITALS: BP 105/54
[2023-12-24] MEDS ORDERED: MICONAZOLE NITRATE 2% 75 GM BOT T SCH (10:00)
[2023-12-24] MEDS ORDERED: FERROUS SULFATE 325 MG TAB PO SCH (10:00)
[2023-12-24] MEDS ORDERED: AMMONIUM LACTATE 12% LOTION T SCH (10:00)
[2023-12-24 12:00] VITALS: BP 120/69
[2023-12-24 16:00] VITALS: BP 131/80; BP 144/95
[2023-12-24 20:00] VITALS: BP 118/70
[2023-12-25] VITALS: BP 13/69; BP 131/69
[2023-12-25] MEDS ORDERED: LEPTOSPERMUM HONEY 0.5 OZ TUBE T ONE (04:02)
[2023-12-25] MEDS ORDERED: FOAM BANDAGE 1 EACH BANDAGE T ONE ×2 (04:02→10:19)
[2023-12-25 06:17] LABS: BASO % 0.2 % (0.0-1.0); HEMATOCRIT 32.8 % (37.0-47.0); LYMPH # 0.8 10*3/uL (1.3-4.4); LYMPH % 7.8 % (27.0-41.0); MEAN CORPUSCULAR HGB 27.4 pg (27.0-31.0); MEAN CORPUSCULAR HGB CONC 29.6 g/dl (33.0-37.0); MEAN PLATELET VOLUME 9.8 fl (9.6-12.3); MONO # 0.4 10*3/uL (0.1-1.0); MONO % 3.8 % (3.0-9.0); NEUT # 8.8 10*3/uL (2.3-7.9); NEUT % 87.3 % (47.0-73.0); PLATELET COUNT AUTOMATED 398 10*3/uL (130-400); RED BLOOD COUNT 3.54 10*6/uL (4.10-5.10); WHITE BLOOD COUNT 10.1 10*3/uL (4.8-10.8)
[2023-12-25 06:18] LABS: MEAN CELL VOLUME 92.7 fl (81.0-99.0)
[2023-12-25 06:34] LABS: BUN 21 mg/dl (9-23); CHLORIDE 94 mmol/L (98-107); POTASSIUM 4.3 mmol/L (3.4-5.1)
[2023-12-25 08:00] VITALS: BP 120/76
[2023-12-25] MEDS ORDERED: acetaZOLAMIDE 250 MG TAB PO SCH (11:15)
[2023-12-25 11:53] VITALS: BP 128/78
[2023-12-25 14:14] VITALS: BP 115/64
[2023-12-25 16:00] VITALS: BP 119/71
[2023-12-25 20:00] VITALS: BP 122/72
[2023-12-26] VITALS: BP 128/68
[2023-12-26 06:24] LABS: BUN 15 mg/dl (9-23); CHLORIDE 100 mmol/L (98-107); POTASSIUM 4.5 mmol/L (3.4-5.1)
[2023-12-26 07:43] LABS: BASO % 0.1 % (0.0-1.0); LYMPH % 9.9 % (27.0-41.0); MEAN CELL VOLUME 93.4 fl (81.0-99.0); MEAN CORPUSCULAR HGB 27.2 pg (27.0-31.0); MEAN CORPUSCULAR HGB CONC 29.1 g/dl (33.0-37.0); MEAN PLATELET VOLUME 9.9 fl (9.6-12.3); MONO # 0.5 10*3/uL (0.1-1.0); MONO % 4.5 % (3.0-9.0); NEUT # 8.8 10*3/uL (2.3-7.9); NEUT % 83.8 % (47.0-73.0); PLATELET COUNT AUTOMATED 444 10*3/uL (130-400); RED BLOOD COUNT 3.64 10*6/uL (4.10-5.10); RED CELL DISTRI WIDTH 15.2 % (0-14.5); WHITE BLOOD COUNT 10.5 10*3/uL (4.8-10.8)
[2023-12-26 08:00] VITALS: BP 113/59
[2023-12-26 12:00] VITALS: BP 119/63
[2023-12-26] MEDS ORDERED: DOXYCYCLINE HY100 M3 PO (12:12)
[2023-12-26] MEDS ORDERED: ACETAZOLAMIDE250 MG PO (12:12)
[2023-12-26] MEDS ORDERED: PREDNISONE10 MG PO (12:12)
[2023-12-26 16:00] VITALS: BP 115/57
== END 2023-12-26 16:19 | disposition home or self-care (01) | DRG 720 ==
LOC: ED 16:44 → 4E 18:53 → EDHOLD 18:53 → 4E 12-22 13:38
PROVIDERS: Internal Medicine; Student in an Organized Health Care Education/Training Program; ADMIT Internal Medicine; ATTEND Internal Medicine
PROC: 5A09357 Assistance with Respiratory Ventilation, Less than 24 Consecutive Hours, Continuous Positive Airway Pressure (ICD-10-PCS; principal; 2023-12-21)
PROC: 5A09357 Assistance with Respiratory Ventilation, Less than 24 Consecutive Hours, Continuous Positive Airway Pressure (ICD-10-PCS; 2023-12-22)
PROC: 5A09357 Assistance with Respiratory Ventilation, Less than 24 Consecutive Hours, Continuous Positive Airway Pressure (ICD-10-PCS; 2023-12-23)
PROC: 5A09357 Assistance with Respiratory Ventilation, Less than 24 Consecutive Hours, Continuous Positive Airway Pressure (ICD-10-PCS; 2023-12-24)
PROC: 5A09357 Assistance with Respiratory Ventilation, Less than 24 Consecutive Hours, Continuous Positive Airway Pressure (ICD-10-PCS; 2023-12-25)
PROC: 5A09357 Assistance with Respiratory Ventilation, Less than 24 Consecutive Hours, Continuous Positive Airway Pressure (ICD-10-PCS; 2023-12-26)
DX: A41.9 Sepsis, unspecified organism (principal); J96.21 Acute and chronic respiratory failure with hypoxia; J96.22 Acute and chronic respiratory failure with hypercapnia; I50.43 Acute on chronic combined systolic (congestive) and diastolic (congestive) heart failure; E44.0 Moderate protein-calorie malnutrition; G93.41 Metabolic encephalopathy; J15.69 Pneumonia due to other Gram-negative bacteria; J44.1 Chronic obstructive pulmonary disease with (acute) exacerbation; J44.0 Chronic obstructive pulmonary disease with (acute) lower respiratory infection; F32.A Depression, unspecified; R65.20 Severe sepsis without septic shock; G40.909 Epilepsy, unspecified, not intractable, without status epilepticus; I11.0 Hypertensive heart disease with heart failure; R74.01 Elevation of levels of liver transaminase levels; D75.839 Thrombocytosis, unspecified; R73.9 Hyperglycemia, unspecified; K76.0 Fatty (change of) liver, not elsewhere classified; E66.9 Obesity, unspecified; Z68.30 Body mass index [BMI] 30.0-30.9, adult; Z79.899 Other long term (current) drug therapy; Z79.01 Long term (current) use of anticoagulants; Z79.2 Long term (current) use of antibiotics; Z88.2 Allergy status to sulfonamides; Z88.8 Allergy status to other drugs, medicaments and biological substances; Z71.6 Tobacco abuse counseling; Z91.09 Other allergy status, other than to drugs and biological substances; Z90.49 Acquired absence of other specified parts of digestive tract; Z82.3 Family history of stroke

== ENCOUNTER 2024-03-09 00:58 | Inpatient (IN) | payer MEDICAID ==
[~2024-03-09] VITALS: Ht 165.1 cm; Wt 98.7 kg
[2024-03-09] VITALS (7 sets, daily range): BP systolic 114–137; BP diastolic 66–79
[~2024-03-09 00:58] MED LIST changes: +ACETAZOLAMIDE250 MG PO; +DOXYCYCLINE HY100 M3 PO
[2024-03-09 01:59] LABS: BASO # 0.1 10*3/uL (0.0-0.1); BASO % 0.5 % (0.0-1.0); EOS # 0.9 10*3/uL (0.0-0.4); EOS % 5.3 % (1.0-4.0); HEMATOCRIT 36.2 % (37.0-47.0); LYMPH # 2.3 10*3/uL (1.3-4.4); LYMPH % 13.4 % (27.0-41.0); MEAN CELL VOLUME 93.3 fl (81.0-99.0); MEAN CORPUSCULAR HGB 27.3 pg (27.0-31.0); MEAN CORPUSCULAR HGB CONC 29.3 g/dl (33.0-37.0); MEAN PLATELET VOLUME 9.2 fl (9.6-12.3); MONO # 0.8 10*3/uL (0.1-1.0); MONO % 4.5 % (3.0-9.0); NEUT # 12.7 10*3/uL (2.3-7.9); NEUT % 75.5 % (47.0-73.0); PLATELET COUNT AUTOMATED 458 10*3/uL (130-400); RED BLOOD COUNT 3.88 10*6/uL (4.10-5.10); RED CELL DISTRI WIDTH 15.9 % (0-14.5); WHITE BLOOD COUNT 16.9 10*3/uL (4.8-10.8)
[2024-03-09 02:18] LABS: BUN 8 mg/dl (9-23); CHLORIDE 100 mmol/L (98-107); POTASSIUM 4.3 mmol/L (3.4-5.1)
[2024-03-09 02:25] LABS: BILIRUBIN Negative (Negative); BLOOD Negative (Negative); CLARITY Cloudy (Clear); COLOR Yellow (Yellow); GLUCOSE Negative (Negative); KETONE Negative (Negative); LEUKO ESTERASE 3+ (Negative); NITRITE Positive (Negative); PH 5.5 (4.5-8.0); UROBILINOGEN 0.2 E.U./dl (0.0-1.0)
[2024-03-09 02:30] LABS: BACTERIA 4+; WBC 41-50 wbc/hpf (0-5)
[2024-03-09] MEDS ORDERED: Ceftriaxone Sodium 1 GM/10 ML SYR IV ONE (05:05)
[2024-03-09] MEDS ORDERED: SODIUM CHLORIDE 0.9% 1,000 ML IV SCH (05:10)
[2024-03-09] MEDS ORDERED: BISACODYL 5 MG TAB PO PRN (05:45)
[2024-03-09] MEDS ORDERED: MORPHINE Sulfate 2 MG/ML SYR IV PRN (05:45)
[2024-03-09] MEDS ORDERED: ACETAMINOPHEN 325 MG TAB PO PRN (05:45)
[2024-03-09] MEDS ORDERED: Acetaminophen/Hydrocodone 5 MG/325 MG TABLET PO PRN (05:45)
[2024-03-09] MEDS ORDERED: Magnesium Hydroxide 30 ML UDC PO PRN (05:45)
[2024-03-09] MEDS ORDERED: Ondansetron Hydrochloride 4 MG/2 ML VIAL IV PRN (05:45)
[2024-03-09] MEDS ORDERED: ACETAMINOPHEN 650 MG SUPP R PRN (05:45)
[2024-03-09] MEDS ORDERED: BISACODYL 10 MG SUPP R PRN (05:45)
[2024-03-09] MEDS ORDERED: TEMAZEPAM 15 MG CAP PO PRN (05:45)
[2024-03-09] MEDS ORDERED: DEXTROSE 10 % IN WATER 250 ML IV PRN (05:55)
[2024-03-09] MEDS ORDERED: Albuterol Sulf/Ipratropium 3 ML VIAL NEB SCH (05:55)
[2024-03-09] MEDS ORDERED: KEPPRA750 MG PO (06:12)
[2024-03-09] MEDS ORDERED: GOOD SENSE ACID20 MG PO (06:15)
[2024-03-09 06:57] LABS: ABG BASE EXCESS 2.4 mmol/L (-2.0-3.0); ABG O2 SATURATION 92.7 % (94.0-98.0); ARTERIAL BLOOD GAS PO2 74.8 mmHg (83.0-108.0)
[2024-03-09 07:00] LABS: ARTERIAL BLOOD GAS PH 7.248 (7.350-7.450)
[2024-03-09 07:02] LABS: BASO # 0.1 10*3/uL (0.0-0.1); BASO % 0.6 % (0.0-1.0); EOS # 0.9 10*3/uL (0.0-0.4); EOS % 5.2 % (1.0-4.0); HEMATOCRIT 39.6 % (37.0-47.0); LYMPH # 2.3 10*3/uL (1.3-4.4); LYMPH % 13.4 % (27.0-41.0); MEAN CORPUSCULAR HGB 27.1 pg (27.0-31.0); MEAN CORPUSCULAR HGB CONC 28.5 g/dl (33.0-37.0); MEAN PLATELET VOLUME 10.1 fl (9.6-12.3); MONO # 0.9 10*3/uL (0.1-1.0); MONO % 5.4 % (3.0-9.0); NEUT # 12.7 10*3/uL (2.3-7.9); NEUT % 74.6 % (47.0-73.0); PLATELET COUNT AUTOMATED 433 10*3/uL (130-400); RED BLOOD COUNT 4.17 10*6/uL (4.10-5.10)
[2024-03-09 07:13] LABS: ACT PARTIAL THROMBO TIME 21.4 SECONDS (20.0-32.1)
[2024-03-09] MEDS ORDERED: INSULIN LISPRO 1 UNIT/0.01 ML SQ SCH (07:30)
[2024-03-09 07:34] LABS: VITAMIN D, 25-HYDROXY 17.7 ng/mL (30-100)
[2024-03-09 07:35] LABS: ALKALINE PHOSPHATASE 125 U/L (46-116); BUN 6 mg/dl (9-23); CHLORIDE 105 mmol/L (98-107); CHOLESTEROL 111 mg/dL (<200); FREE T4 0.99 ng/dl (0.89-1.76); LDL CHOLESTEROL 46 mg/dL (9-159); TOTAL PROTEIN 6.6 gm/dL (6.0-8.0); TRIGLYCERIDES 148 mg/dl (<150)
[2024-03-09 07:41] LABS: SGPT/ALT < 7 U/L (5-49)
[2024-03-09] MEDS ORDERED: FEROSUL325 M1 PO (07:51)
[2024-03-09] MEDS ORDERED: Enoxaparin Sodium 40 MG/0.4 ML SYR SC SCH (10:00)
[2024-03-09 11:15] LABS: ABG O2 SATURATION 93.8 % (94.0-98.0); ARTERIAL BLOOD GAS PH 7.327 (7.350-7.450); ARTERIAL BLOOD GAS PO2 67.9 mmHg (83.0-108.0)
[2024-03-09 11:16] LABS: ABG BASE EXCESS 5.4 mmol/L (-2.0-3.0)
[2024-03-09] MEDS ORDERED: AZITHROMYCIN 250 ML IV SCH (14:00)
[2024-03-09] MEDS ORDERED: Piperacillin Sodium/Tazobact 50 ML IV SCH (14:00)
[2024-03-10] VITALS (7 sets, daily range): BP systolic 119–155; BP diastolic 69–98
[2024-03-10] MEDS ORDERED: Ceftriaxone Sodium 1 GM,IV 1 EA in SYRINGE INFUSION 10 ML IV SCH (06:00)
[2024-03-10 07:36] LABS: BASO # 0.1 10*3/uL (0.0-0.1); BASO % 0.8 % (0.0-1.0); EOS # 0.9 10*3/uL (0.0-0.4); EOS % 7.7 % (1.0-4.0); HEMATOCRIT 35.7 % (37.0-47.0); LYMPH # 2.2 10*3/uL (1.3-4.4); MEAN CELL VOLUME 96.5 fl (81.0-99.0); MEAN PLATELET VOLUME 9.4 fl (9.6-12.3); MONO # 0.8 10*3/uL (0.1-1.0); MONO % 6.1 % (3.0-9.0); NEUT # 8.2 10*3/uL (2.3-7.9); NEUT % 66.9 % (47.0-73.0); PLATELET COUNT AUTOMATED 414 10*3/uL (130-400); RED CELL DISTRI WIDTH 16.2 % (0-14.5); WHITE BLOOD COUNT 12.2 10*3/uL (4.8-10.8)
[2024-03-10 08:19] LABS: ALKALINE PHOSPHATASE 116 U/L (46-116); BUN 6 mg/dl (9-23); CHLORIDE 104 mmol/L (98-107); POTASSIUM 4.5 mmol/L (3.4-5.1); SGPT/ALT 7 U/L (5-49); TOTAL PROTEIN 6.4 gm/dL (6.0-8.0)
[2024-03-10] MEDS ORDERED: methylPREDNISolone sod succ 125 MG VIAL IV SCH (14:00)
[2024-03-10] MEDS ORDERED: Nicotine 14 MG PATCH T SCH (15:10)
[2024-03-10] MEDS ORDERED: Albuterol Sulf/Ipratropium 3 ML VIAL NEB SCH (15:11)
[2024-03-10] MEDS ORDERED: PERFLUTREN PROTEIN-A MICROSPHR 3 ML VIAL IV ONE (15:52)
[2024-03-10] MEDS ORDERED: Insulin Glargine, Recombinan 1 UNIT/0.01 ML SC SCH (18:00)
[2024-03-10] MEDS ORDERED: RISPERIDONE 2 MG TAB PO SCH (22:00)
[2024-03-10] MEDS ORDERED: GUAIFENESIN 600 MG TAB ER PO SCH (22:00)
[2024-03-10] MEDS ORDERED: LEVETIRACETAM 250 MG TAB PO SCH (22:00)
[2024-03-10] MEDS ORDERED: methylPREDNISolone sod succ 40 MG VIAL IV SCH (22:00)
[2024-03-11] VITALS: BP 108/63
[2024-03-11] MEDS ORDERED: NYSTATIN 15 GM BOT T SCH (04:10)
[2024-03-11 07:00] LABS: HEMATOCRIT 34.8 % (37.0-47.0); MEAN CELL VOLUME 95.1 fl (81.0-99.0); MEAN CORPUSCULAR HGB 27.3 pg (27.0-31.0); MEAN CORPUSCULAR HGB CONC 28.7 g/dl (33.0-37.0); MEAN PLATELET VOLUME 9.8 fl (9.6-12.3); PLATELET COUNT AUTOMATED 440 10*3/uL (130-400); RED BLOOD COUNT 3.66 10*6/uL (4.10-5.10); RED CELL DISTRI WIDTH 15.9 % (0-14.5); WHITE BLOOD COUNT 10.8 10*3/uL (4.8-10.8)
[2024-03-11 07:02] LABS: MANUAL DIFF REFLEX YES
[2024-03-11 07:28] LABS: BASOPHILS 1 % (0-1); OVALOCYTES FEW; PLATELET SUFFICIENCY HIGH (NORMAL); POLYCHROMASIA SLIGHT; TARGET CELLS FEW; TOTAL CELLS COUNTED 100 #CELLS
[2024-03-11 07:50] LABS: BUN 9 mg/dl (9-23); CHLORIDE 101 mmol/L (98-107)
[2024-03-11 08:00] VITALS: BP 143/80
[2024-03-11] MEDS ORDERED: Cholecalciferol 2,000 UNIT TABLET (50 MCG) PO SCH (10:00)
[2024-03-11] MEDS ORDERED: ATORVASTATIN CALCIUM 40 MG TABLET PO SCH (10:00)
[2024-03-11] MEDS ORDERED: acetaZOLAMIDE 250 MG TAB PO SCH (10:00)
[2024-03-11] MEDS ORDERED: Ipratropium Brom3 ML NEB (10:54)
[2024-03-11] MEDS ORDERED: LANTUS100 UNIT/1 SC (11:03)
[2024-03-11] MEDS ORDERED: AMOX-CLAV 875-1 EACH PO (11:03)
[2024-03-11 12:00] VITALS: BP 128/80
[2024-03-12] MEDS ORDERED: FERROUS SULFATE 325 MG TAB PO SCH (10:00)
== END 2024-03-11 15:45 | disposition home or self-care (01) | DRG 720 ==
LOC: ED 00:58 → 4E 05:25 → EDHOLD 05:25 → 4E 03-10 09:02
PROVIDERS: Emergency Medicine; Student in an Organized Health Care Education/Training Program; ADMIT Internal Medicine; ATTEND Internal Medicine
PROC: 5A09357 Assistance with Respiratory Ventilation, Less than 24 Consecutive Hours, Continuous Positive Airway Pressure (ICD-10-PCS; principal; 2024-03-09)
PROC: 5A09357 Assistance with Respiratory Ventilation, Less than 24 Consecutive Hours, Continuous Positive Airway Pressure (ICD-10-PCS; 2024-03-10)
DX: A41.9 Sepsis, unspecified organism (principal); J96.01 Acute respiratory failure with hypoxia; J96.02 Acute respiratory failure with hypercapnia; J15.69 Pneumonia due to other Gram-negative bacteria; E87.1 Hypo-osmolality and hyponatremia; J44.1 Chronic obstructive pulmonary disease with (acute) exacerbation; J44.0 Chronic obstructive pulmonary disease with (acute) lower respiratory infection; N39.0 Urinary tract infection, site not specified; G40.909 Epilepsy, unspecified, not intractable, without status epilepticus; R65.20 Severe sepsis without septic shock; K62.89 Other specified diseases of anus and rectum; F17.210 Nicotine dependence, cigarettes, uncomplicated; J45.40 Moderate persistent asthma, uncomplicated; J43.9 Emphysema, unspecified; F32.A Depression, unspecified; I50.32 Chronic diastolic (congestive) heart failure; K76.0 Fatty (change of) liver, not elsewhere classified; E11.65 Type 2 diabetes mellitus with hyperglycemia; Z90.49 Acquired absence of other specified parts of digestive tract; Z71.6 Tobacco abuse counseling; Z88.1 Allergy status to other antibiotic agents; Z91.030 Bee allergy status; Z79.899 Other long term (current) drug therapy; E66.01 Morbid (severe) obesity due to excess calories; Z68.36 Body mass index [BMI] 36.0-36.9, adult; Z82.3 Family history of stroke

== ENCOUNTER 2024-04-06 22:21 | Inpatient (IN) | payer MEDICAID ==
[~2024-04-06] VITALS: Ht 163 cm; Wt 97.6 kg
[~2024-04-06 22:21] MED LIST changes: +AMOX-CLAV 875-1 EACH PO; +FEROSUL325 M1 PO; +GOOD SENSE ACID20 MG PO; +KEPPRA750 MG PO; +LANTUS100 UNIT/1 SC
[2024-04-06 22:45] VITALS: BP 115/79
[2024-04-06 22:56] LABS: BASO # 0.1 10*3/uL (0.0-0.1); BASO % 0.4 % (0.0-1.0); EOS # 0.4 10*3/uL (0.0-0.4); EOS % 3.4 % (1.0-4.0); HEMATOCRIT 38.8 % (37.0-47.0); LYMPH # 1.8 10*3/uL (1.3-4.4); LYMPH % 15.1 % (27.0-41.0); MEAN CELL VOLUME 95.3 fl (81.0-99.0); MEAN CORPUSCULAR HGB 27.5 pg (27.0-31.0); MEAN CORPUSCULAR HGB CONC 28.9 g/dl (33.0-37.0); MEAN PLATELET VOLUME 9.5 fl (9.6-12.3); MONO # 0.7 10*3/uL (0.1-1.0); MONO % 6.2 % (3.0-9.0); NEUT # 8.9 10*3/uL (2.3-7.9); NEUT % 74.2 % (47.0-73.0); PLATELET COUNT AUTOMATED 345 10*3/uL (130-400); RED BLOOD COUNT 4.07 10*6/uL (4.10-5.10); RED CELL DISTRI WIDTH 15.9 % (0-14.5)
[2024-04-06 23:10] LABS: BUN 6 mg/dl (9-23); CHLORIDE 101 mmol/L (98-107)
[2024-04-07] VITALS (7 sets, daily range): BP systolic 100–132; BP diastolic 58–80
[2024-04-07] MEDS ORDERED: FUROSEMIDE 20 MG/2 ML VIAL IV ONE (00:15)
[2024-04-07] MEDS ORDERED: ACETAMINOPHEN 325 MG TAB PO PRN (00:30)
[2024-04-07] MEDS ORDERED: Ondansetron Hydrochloride 4 MG/2 ML VIAL IV PRN (00:30)
[2024-04-07] MEDS ORDERED: Magnesium Hydroxide 30 ML UDC PO PRN (00:30)
[2024-04-07] MEDS ORDERED: Ceftriaxone Sodium 1 GM in SYRINGE INFUSION 10 ML IV SCH (00:35)
[2024-04-07] MEDS ORDERED: Albuterol Sulf/Ipratropium 3 ML VIAL NEB SCH (00:35)
[2024-04-07] MEDS ORDERED: methylPREDNISolone sod succ 40 MG VIAL IV SCH (00:40)
[2024-04-07] MEDS ORDERED: AZITHROMYCIN 250 ML IV SCH (00:50)
[2024-04-07] MEDS ORDERED: DEXTROSE 10 % IN WATER 250 ML IV PRN (00:50)
[2024-04-07] MEDS ORDERED: Ceftriaxone Sodium 1 GM in SYRINGE INFUSION 10 ML IV ONE (01:10)
[2024-04-07] MEDS ORDERED: LEVETIRACETAM 500 MG TAB PO SCH (01:30)
[2024-04-07] MEDS ORDERED: LORazepam 2 MG/ML VIAL ONE (01:43)
[2024-04-07 02:12] LABS: BILIRUBIN Negative (Negative); BLOOD Negative (Negative); CLARITY Clear (Clear); COLOR Yellow (Yellow); GLUCOSE Negative (Negative); KETONE Negative (Negative); LEUKO ESTERASE 2+ (Negative); NITRITE Positive (Negative); PH 5.5 (4.5-8.0); SPECIFIC GRAVITY <= 1.005 (1.001-1.030); UROBILINOGEN 0.2 E.U./dl (0.0-1.0)
[2024-04-07 02:19] LABS: BACTERIA 2+; RBC 0-2 rbc/hpf (0-2); WBC 16-20 wbc/hpf (0-5)
[2024-04-07 06:43] LABS: HEMATOCRIT 37.4 % (37.0-47.0); MANUAL DIFF REFLEX YES; MEAN CELL VOLUME 96.4 fl (81.0-99.0); MEAN CORPUSCULAR HGB 28.1 pg (27.0-31.0); MEAN CORPUSCULAR HGB CONC 29.1 g/dl (33.0-37.0); MEAN PLATELET VOLUME 9.5 fl (9.6-12.3); PLATELET COUNT AUTOMATED 381 10*3/uL (130-400); RED BLOOD COUNT 3.88 10*6/uL (4.10-5.10); RED CELL DISTRI WIDTH 15.9 % (0-14.5); WHITE BLOOD COUNT 14.4 10*3/uL (4.8-10.8)
[2024-04-07] MEDS ORDERED: FUROSEMIDE 40 MG/4 ML VIAL IV SCH ×2 (07:00→18:00)
[2024-04-07 07:11] LABS: BUN 6 mg/dl (9-23); CHLORIDE 99 mmol/L (98-107); POTASSIUM 5.1 mmol/L (3.4-5.1); SGPT/ALT 14 U/L (5-49); TOTAL PROTEIN 6.4 gm/dL (6.0-8.0)
[2024-04-07 07:12] LABS: ALKALINE PHOSPHATASE 120 U/L (46-116)
[2024-04-07 07:14] LABS: OVALOCYTES FEW; POLYCHROMASIA SLIGHT; TOTAL CELLS COUNTED 100 #CELLS; VACUOLATION OF NEUTROPHILS SLIGHT
[2024-04-07 07:15] LABS: PLATELET SUFFICIENCY NORMAL (NORMAL)
[2024-04-07] MEDS ORDERED: INSULIN LISPRO 1 UNIT/0.01 ML SQ SCH (07:30)
[2024-04-07] MEDS ORDERED: Acetaminophen/Hydrocodone 5 MG/325 MG TABLET PO PRN (07:50)
[2024-04-07] MEDS ORDERED: MORPHINE Sulfate 2 MG/ML SYR IV PRN (07:50)
[2024-04-07] MEDS ORDERED: Meropenem 50 ML IV SCH (08:00)
[2024-04-07 09:51] LABS: ARTERIAL BLOOD GAS PH 7.347 (7.350-7.450)
[2024-04-07 09:56] LABS: ABG BASE EXCESS 7.9 mmol/L (-2.0-3.0)
[2024-04-07 09:57] LABS: ABG O2 SATURATION 96.8 % (94.0-98.0)
[2024-04-07] MEDS ORDERED: Sertraline Hydrochloride 50 MG TAB PO SCH (10:00)
[2024-04-07] MEDS ORDERED: SERTRALINE 50 MG PO SCH (10:00)
[2024-04-07] MEDS ORDERED: Enoxaparin Sodium 40 MG/0.4 ML SYR SC SCH (10:00)
[2024-04-07] MEDS ORDERED: Nicotine 21 MG PATCH T SCH (10:00)
[2024-04-07] MEDS ORDERED: FERROUS SULFATE 325 MG TAB PO SCH (10:00)
[2024-04-07] MEDS ORDERED: GUAIFENESIN 600 MG TAB ER PO SCH (10:00)
[2024-04-07] MEDS ORDERED: AMMONIUM LACTATE 12% LOTION T SCH (10:00)
[2024-04-07] MEDS ORDERED: FAMOTIDINE 20 MG TAB PO SCH (10:00)
[2024-04-07] MEDS ORDERED: ATORVASTATIN CALCIUM 40 MG TABLET PO SCH (10:00)
[2024-04-07] MEDS ORDERED: MICONAZOLE NITRATE 2% 75 GM BOT T SCH (10:00)
[2024-04-07] MEDS ORDERED: acetaZOLAMIDE 250 MG TAB PO SCH (10:00)
[2024-04-07 13:19] LABS: ABG BASE EXCESS 10.5 mmol/L (-2.0-3.0); ABG O2 SATURATION 97.3 % (94.0-98.0); ARTERIAL BLOOD GAS PH 7.391 (7.350-7.450); ARTERIAL BLOOD GAS PO2 87.4 mmHg (83.0-108.0)
[2024-04-07] MEDS ORDERED: LEVETIRACETAM 750 MG in SODIUM CHLORIDE 0.9% 100 ML IV SCH ×2 (14:10→14:17)
[2024-04-07] MEDS ORDERED: RISPERIDONE 2 MG TAB PO SCH (22:00)
[2024-04-08] VITALS (9 sets, daily range): BP systolic 111–145; BP diastolic 62–90
[2024-04-08 07:10] LABS: BASO % 0.2 % (0.0-1.0); HEMATOCRIT 35.9 % (37.0-47.0); LYMPH # 0.8 10*3/uL (1.3-4.4); LYMPH % 6.5 % (27.0-41.0); MEAN CELL VOLUME 94.5 fl (81.0-99.0); MEAN CORPUSCULAR HGB 27.9 pg (27.0-31.0); MEAN CORPUSCULAR HGB CONC 29.5 g/dl (33.0-37.0); MEAN PLATELET VOLUME 9.8 fl (9.6-12.3); MONO # 0.6 10*3/uL (0.1-1.0); MONO % 4.4 % (3.0-9.0); NEUT # 11.3 10*3/uL (2.3-7.9); PLATELET COUNT AUTOMATED 390 10*3/uL (130-400); RED CELL DISTRI WIDTH 15.8 % (0-14.5); WHITE BLOOD COUNT 12.8 10*3/uL (4.8-10.8)
[2024-04-08 07:30] LABS: BUN 14 mg/dl (9-23); CHLORIDE 97 mmol/L (98-107); POTASSIUM 4.3 mmol/L (3.4-5.1)
[2024-04-08 08:31] LABS: ABG O2 SATURATION 91.3 % (94.0-98.0); ARTERIAL BLOOD GAS PH 7.397 (7.350-7.450); ARTERIAL BLOOD GAS PO2 61.7 mmHg (83.0-108.0)
[2024-04-08 08:33] LABS: ABG BASE EXCESS 12.7 mmol/L (-2.0-3.0)
[2024-04-08] MEDS ORDERED: VANCOMYCIN/WATER FOR INJ (PEG) 250 ML IV SCH (16:00)
[2024-04-08] MEDS ORDERED: Insulin Glargine, Recombinan 1 UNIT/0.01 ML SC SCH (18:00)
[2024-04-08] MEDS ORDERED: LEVETIRACETAM 250 MG TAB PO SCH (22:00)
[2024-04-09] MEDS ORDERED: RISPERIDONE 2 MG TAB ONE (00:37)
[2024-04-09 06:32] LABS: BASO % 0.1 % (0.0-1.0); HEMATOCRIT 36.9 % (37.0-47.0); LYMPH # 1.4 10*3/uL (1.3-4.4); LYMPH % 9.2 % (27.0-41.0); MEAN CELL VOLUME 95.3 fl (81.0-99.0); MEAN CORPUSCULAR HGB 27.4 pg (27.0-31.0); MEAN CORPUSCULAR HGB CONC 28.7 g/dl (33.0-37.0); MEAN PLATELET VOLUME 10.2 fl (9.6-12.3); MONO # 0.8 10*3/uL (0.1-1.0); MONO % 5.5 % (3.0-9.0); NEUT # 12.7 10*3/uL (2.3-7.9); NEUT % 84.5 % (47.0-73.0); PLATELET COUNT AUTOMATED 373 10*3/uL (130-400); RED BLOOD COUNT 3.87 10*6/uL (4.10-5.10); RED CELL DISTRI WIDTH 15.6 % (0-14.5)
[2024-04-09 06:36] LABS: BUN 21 mg/dl (9-23); CHLORIDE 101 mmol/L (98-107); POTASSIUM 4.3 mmol/L (3.4-5.1)
[2024-04-09 08:00] VITALS: BP 107/79
[2024-04-09] MEDS ORDERED: LEVETIRACETAM 500 MG TAB PO SCH (10:00)
[2024-04-09] MEDS ORDERED: LORazepam 2 MG/ML VIAL IV ONE (10:55)
[2024-04-09] MEDS ORDERED: LORazepam 2 MG/ML VIAL ONE (11:08)
[2024-04-09 12:00] VITALS: BP 142/76
[2024-04-09 14:49] LABS: ABG O2 SATURATION 96.2 % (94.0-98.0); ARTERIAL BLOOD GAS PH 7.288 (7.350-7.450); ARTERIAL BLOOD GAS PO2 89.7 mmHg (83.0-108.0)
[2024-04-09 14:52] LABS: ABG BASE EXCESS 8.7 mmol/L (-2.0-3.0)
[2024-04-09 15:27] VITALS: BP 138/73
[2024-04-09] MEDS ORDERED: LEVETIRACETAM500 MG PO (16:48)
[2024-04-09] MEDS ORDERED: SOLU-MEDRO40 MG/1 ML IV (16:48)
[2024-04-09] MEDS ORDERED: VANCO 1.251.25 GM/25 IV (16:48)
[2024-04-09] MEDS ORDERED: MEROPENEM-1 GM/50 ML IV (16:48)
[2024-04-09] MEDS ORDERED: FUROSEMIDE10 MG/1 M1 IV (16:48)
[2024-04-09] MEDS ORDERED: 'zithromax250 MG IV (16:48)
[2024-04-09 17:26] LABS: ARTERIAL BLOOD GAS PH 7.275 (7.350-7.450)
[2024-04-09 17:27] LABS: ABG BASE EXCESS 0.8 mmol/L (-2.0-3.0); ABG O2 SATURATION 95.5 % (94.0-98.0); ARTERIAL BLOOD GAS PO2 81.3 mmHg (83.0-108.0)
[2024-04-09 20:00] VITALS: BP 122/78
[2024-04-10 03:35] LABS: BASO % 0.1 % (0.0-1.0); EOS % 0.3 % (1.0-4.0); HEMATOCRIT 37.8 % (37.0-47.0); LYMPH # 2.7 10*3/uL (1.3-4.4); LYMPH % 19.2 % (27.0-41.0); MEAN CELL VOLUME 95.2 fl (81.0-99.0); MEAN CORPUSCULAR HGB 27.2 pg (27.0-31.0); MEAN CORPUSCULAR HGB CONC 28.6 g/dl (33.0-37.0); MEAN PLATELET VOLUME 9.7 fl (9.6-12.3); MONO # 1.4 10*3/uL (0.1-1.0); MONO % 10.2 % (3.0-9.0); NEUT # 9.8 10*3/uL (2.3-7.9); NEUT % 69.6 % (47.0-73.0); PLATELET COUNT AUTOMATED 370 10*3/uL (130-400); RED BLOOD COUNT 3.97 10*6/uL (4.10-5.10); RED CELL DISTRI WIDTH 15.4 % (0-14.5); WHITE BLOOD COUNT 14.1 10*3/uL (4.8-10.8)
[2024-04-10 03:59] LABS: BUN 22 mg/dl (9-23); CHLORIDE 101 mmol/L (98-107); POTASSIUM 3.8 mmol/L (3.4-5.1)
[2024-04-10 07:53] LABS: ARTERIAL BLOOD GAS PH 7.333 (7.350-7.450); ARTERIAL BLOOD GAS PO2 96.8 mmHg (83.0-108.0)
[2024-04-10 07:58] LABS: ABG BASE EXCESS 9.1 mmol/L (-2.0-3.0)
[2024-04-10 08:00] VITALS: BP 123/74
[2024-04-10] MEDS ORDERED: methylPREDNISolone sod succ 40 MG VIAL IV SCH (10:00)
[2024-04-10 12:00] VITALS: BP 116/65
[2024-04-10 16:00] VITALS: BP 109/63
[2024-04-10 20:00] VITALS: BP 114/62
[2024-04-11] MEDS ORDERED: VANCOMYCIN/WATER FOR INJ (PEG) 300 ML IV SCH
== END 2024-04-10 22:05 | disposition short-term general hospital (02) | DRG 720 ==
LOC: ED 22:21 → 4E 23:30 → EDHOLD 04-07 00:17 → 4E 04-07 00:17 → EDHOLD 04-07 10:31 → 4E 04-08 19:45
PROVIDERS: Internal Medicine; Internal Medicine Critical Care Medicine; Student in an Organized Health Care Education/Training Program; ADMIT Student in an Organized Health Care Education/Training Program; ATTEND Student in an Organized Health Care Education/Training Program
PROC: 5A09357 Assistance with Respiratory Ventilation, Less than 24 Consecutive Hours, Continuous Positive Airway Pressure (ICD-10-PCS; principal; 2024-04-07)
PROC: 5A09357 Assistance with Respiratory Ventilation, Less than 24 Consecutive Hours, Continuous Positive Airway Pressure (ICD-10-PCS; 2024-04-08)
PROC: 5A09357 Assistance with Respiratory Ventilation, Less than 24 Consecutive Hours, Continuous Positive Airway Pressure (ICD-10-PCS; 2024-04-09)
PROC: 5A09357 Assistance with Respiratory Ventilation, Less than 24 Consecutive Hours, Continuous Positive Airway Pressure (ICD-10-PCS; 2024-04-10)
DX: A41.9 Sepsis, unspecified organism (principal); J96.22 Acute and chronic respiratory failure with hypercapnia; J96.21 Acute and chronic respiratory failure with hypoxia; I50.33 Acute on chronic diastolic (congestive) heart failure; E87.3 Alkalosis; J44.1 Chronic obstructive pulmonary disease with (acute) exacerbation; J98.4 Other disorders of lung; D64.9 Anemia, unspecified; G40.909 Epilepsy, unspecified, not intractable, without status epilepticus; E66.01 Morbid (severe) obesity due to excess calories; N30.00 Acute cystitis without hematuria; F17.210 Nicotine dependence, cigarettes, uncomplicated; E11.65 Type 2 diabetes mellitus with hyperglycemia; J45.20 Mild intermittent asthma, uncomplicated; F33.41 Major depressive disorder, recurrent, in partial remission; N39.46 Mixed incontinence; Z90.49 Acquired absence of other specified parts of digestive tract; Z88.2 Allergy status to sulfonamides; Z88.8 Allergy status to other drugs, medicaments and biological substances; Z79.899 Other long term (current) drug therapy; Z71.6 Tobacco abuse counseling; Z79.01 Long term (current) use of anticoagulants; Z79.2 Long term (current) use of antibiotics; Z82.3 Family history of stroke; Z68.36 Body mass index [BMI] 36.0-36.9, adult

== ENCOUNTER 2024-04-17 23:00 | Emergency (ER) | payer MEDICAID ==
[~2024-04-17] VITALS: Ht 162.5 cm; Wt 99.8 kg
[~2024-04-17 23:00] MED LIST changes: +'zithromax250 MG IV; +FUROSEMIDE10 MG/1 M1 IV; +LEVETIRACETAM500 MG PO; +MEROPENEM-1 GM/50 ML IV; +SOLU-MEDRO40 MG/1 ML IV; +VANCO 1.251.25 GM/25 IV
[2024-04-17] MEDS ORDERED: methylPREDNISolone sod succ 125 MG VIAL IV ONE (23:05)
[2024-04-18 00:16] LABS: BASO % 0.2 % (0.0-1.0); EOS % 0.2 % (1.0-4.0); HEMATOCRIT 40.1 % (37.0-47.0); MEAN CELL VOLUME 94.6 fl (81.0-99.0); MEAN CORPUSCULAR HGB 27.8 pg (27.0-31.0); MEAN CORPUSCULAR HGB CONC 29.4 g/dl (33.0-37.0); MONO # 1.1 10*3/uL (0.1-1.0); MONO % 6.5 % (3.0-9.0); NEUT # 13.8 10*3/uL (2.3-7.9); NEUT % 78.5 % (47.0-73.0); PLATELET COUNT AUTOMATED 458 10*3/uL (130-400); RED BLOOD COUNT 4.24 10*6/uL (4.10-5.10); RED CELL DISTRI WIDTH 15.7 % (0-14.5); WHITE BLOOD COUNT 17.6 10*3/uL (4.8-10.8)
[2024-04-18 00:33] LABS: ALKALINE PHOSPHATASE 102 U/L (46-116); BUN 13 mg/dl (9-23); CHLORIDE 100 mmol/L (98-107); POTASSIUM 4.2 mmol/L (3.4-5.1); SGPT/ALT 16 U/L (5-49); TOTAL PROTEIN 6.4 gm/dL (6.0-8.0)
[2024-04-18] MEDS ORDERED: AZITHROMYCIN 250 ML IV ONE (00:50)
[2024-04-18] MEDS ORDERED: Ceftriaxone Sodium 1 GM/10 ML SYR IV ONE (00:50)
[2024-04-23] MEDS ORDERED: LANTUS100 UNIT/1 SC (14:28)
== END 2024-04-18 03:44 | disposition home or self-care (01) ==
LOC: ED 23:00
PROVIDERS: Internal Medicine
DX: J44.1 Chronic obstructive pulmonary disease with (acute) exacerbation (principal); M79.672 Pain in left foot; M79.671 Pain in right foot; E87.29 Other acidosis; D72.829 Elevated white blood cell count, unspecified; E87.20 Acidosis, unspecified; E44.1 Mild protein-calorie malnutrition; E11.65 Type 2 diabetes mellitus with hyperglycemia; F31.9 Bipolar disorder, unspecified; E78.00 Pure hypercholesterolemia, unspecified; Z68.1 Body mass index [BMI] 19.9 or less, adult; Z91.030 Bee allergy status; Z88.2 Allergy status to sulfonamides; Z90.49 Acquired absence of other specified parts of digestive tract; F17.200 Nicotine dependence, unspecified, uncomplicated

== ENCOUNTER 2024-05-10 22:05 | Inpatient (IN) | payer MEDICAID ==
[~2024-05-10] VITALS: Ht 162.5 cm; Wt 99.1 kg
[~2024-05-10 22:05] MED LIST changes: +MUCUS RELIEF E600 MG PO
[2024-05-10 22:24] VITALS: BP 133/80
[2024-05-10 22:31] LABS: BASO # 0.1 10*3/uL (0.0-0.1); BASO % 0.4 % (0.0-1.0); EOS # 0.4 10*3/uL (0.0-0.4); EOS % 2.9 % (1.0-4.0); HEMATOCRIT 37.1 % (37.0-47.0); MEAN CELL VOLUME 93.9 fl (81.0-99.0); MEAN CORPUSCULAR HGB 28.6 pg (27.0-31.0); MEAN CORPUSCULAR HGB CONC 30.5 g/dl (33.0-37.0); MONO # 0.9 10*3/uL (0.1-1.0); MONO % 6.6 % (3.0-9.0); NEUT # 10.6 10*3/uL (2.3-7.9); NEUT % 75.6 % (47.0-73.0); PLATELET COUNT AUTOMATED 251 10*3/uL (130-400); RED BLOOD COUNT 3.95 10*6/uL (4.10-5.10); RED CELL DISTRI WIDTH 15.3 % (0-14.5)
[2024-05-10 22:54] LABS: BUN 9 mg/dl (9-23); CHLORIDE 100 mmol/L (98-107); POTASSIUM 4.5 mmol/L (3.4-5.1)
[2024-05-10] MEDS ORDERED: FUROSEMIDE 40 MG/4 ML VIAL IV ONE (23:35)
[2024-05-11] VITALS (7 sets, daily range): BP systolic 100–138; BP diastolic 68–94
[2024-05-11 00:38] LABS: BILIRUBIN Negative (Negative); BLOOD Negative (Negative); CLARITY Clear (Clear); COLOR Yellow (Yellow); GLUCOSE 3+ (Negative); KETONE Negative (Negative); LEUKO ESTERASE Negative (Negative); NITRITE Negative (Negative); SPECIFIC GRAVITY 1.015 (1.001-1.030); UROBILINOGEN 0.2 E.U./dl (0.0-1.0)
[2024-05-11 01:05] LABS: RBC 0-2 rbc/hpf (0-2); WBC 0-2 wbc/hpf (0-5)
[2024-05-11] MEDS ORDERED: Acetaminophen/Hydrocodone 5 MG/325 MG TABLET PO PRN (04:30)
[2024-05-11] MEDS ORDERED: Ondansetron Hydrochloride 4 MG/2 ML VIAL IV PRN (04:30)
[2024-05-11] MEDS ORDERED: BISACODYL 10 MG SUPP R PRN (04:30)
[2024-05-11] MEDS ORDERED: Magnesium Hydroxide 30 ML UDC PO PRN (04:30)
[2024-05-11] MEDS ORDERED: ACETAMINOPHEN 650 MG SUPP R PRN (04:30)
[2024-05-11] MEDS ORDERED: BISACODYL 5 MG TAB PO PRN (04:30)
[2024-05-11] MEDS ORDERED: ACETAMINOPHEN 325 MG TAB PO PRN (04:30)
[2024-05-11] MEDS ORDERED: DEXTROSE 10 % IN WATER 250 ML IV PRN (04:40)
[2024-05-11] MEDS ORDERED: Ceftriaxone Sodium 1 GM in SYRINGE INFUSION 10 ML IV SCH (05:00)
[2024-05-11] MEDS ORDERED: methylPREDNISolone sod succ 40 MG VIAL IV SCH (05:35)
[2024-05-11] MEDS ORDERED: FUROSEMIDE 40 MG/4 ML VIAL IV SCH (06:00)
[2024-05-11] MEDS ORDERED: AZITHROMYCIN 250 ML IV SCH (06:30)
[2024-05-11 07:05] LABS: ALKALINE PHOSPHATASE 117 U/L (46-116); BUN 7 mg/dl (9-23); CHLORIDE 96 mmol/L (98-107); CHOLESTEROL 112 mg/dL (<200); LDL CHOLESTEROL 44 mg/dL (9-159); POTASSIUM 4.2 mmol/L (3.4-5.1); SGPT/ALT 14 U/L (5-49); TOTAL PROTEIN 6.3 gm/dL (6.0-8.0); TRIGLYCERIDES 120 mg/dl (<150)
[2024-05-11] MEDS ORDERED: INSULIN LISPRO 1 UNIT/0.01 ML SQ SCH (07:30)
[2024-05-11 07:36] LABS: VITAMIN D, 25-HYDROXY 13.4 ng/mL (30-100)
[2024-05-11 07:40] LABS: BASO # 0.1 10*3/uL (0.0-0.1); BASO % 0.5 % (0.0-1.0); EOS # 0.5 10*3/uL (0.0-0.4); EOS % 3.2 % (1.0-4.0); HEMATOCRIT 38.4 % (37.0-47.0); MEAN CELL VOLUME 94.6 fl (81.0-99.0); MEAN CORPUSCULAR HGB 28.8 pg (27.0-31.0); MEAN CORPUSCULAR HGB CONC 30.5 g/dl (33.0-37.0); MEAN PLATELET VOLUME 10.2 fl (9.6-12.3); MONO % 6.6 % (3.0-9.0); NEUT # 10.7 10*3/uL (2.3-7.9); NEUT % 73.3 % (47.0-73.0); PLATELET COUNT AUTOMATED 285 10*3/uL (130-400); RED BLOOD COUNT 4.06 10*6/uL (4.10-5.10); RED CELL DISTRI WIDTH 15.4 % (0-14.5); WHITE BLOOD COUNT 14.5 10*3/uL (4.8-10.8)
[2024-05-11] MEDS ORDERED: Levalbuterol Hydrochloride 1.25 MG VIAL NEB SCH (08:04)
[2024-05-11] MEDS ORDERED: Enoxaparin Sodium 40 MG/0.4 ML SYR SC SCH (10:00)
[2024-05-11 10:40] LABS: ABG O2 SATURATION 97.4 % (94.0-98.0); ARTERIAL BLOOD GAS PH 7.343 (7.350-7.450); ARTERIAL BLOOD GAS PO2 101.3 mmHg (83.0-108.0)
[2024-05-11 10:41] LABS: ABG BASE EXCESS 8.8 mmol/L (-2.0-3.0)
[2024-05-11 13:12] LABS: ABG O2 SATURATION 96.4 % (94.0-98.0); ARTERIAL BLOOD GAS PH 7.324 (7.350-7.450); ARTERIAL BLOOD GAS PO2 90.5 mmHg (83.0-108.0)
[2024-05-11 13:13] LABS: ABG BASE EXCESS 9.9 mmol/L (-2.0-3.0)
[2024-05-11] MEDS ORDERED: FAMOTIDINE 20 MG TAB PO SCH (18:00)
[2024-05-11] MEDS ORDERED: GUAIFENESIN 600 MG TAB ER PO SCH (22:00)
[2024-05-11] MEDS ORDERED: RISPERIDONE 2 MG TAB PO SCH (22:00)
[2024-05-11] MEDS ORDERED: LEVETIRACETAM 500 MG TAB PO SCH (22:00)
[2024-05-12] VITALS: BP 105/74
[2024-05-12 06:10] LABS: BASO % 0.2 % (0.0-1.0); HEMATOCRIT 35.2 % (37.0-47.0); MEAN CELL VOLUME 93.6 fl (81.0-99.0); MEAN CORPUSCULAR HGB 28.2 pg (27.0-31.0); MEAN CORPUSCULAR HGB CONC 30.1 g/dl (33.0-37.0); MEAN PLATELET VOLUME 10.5 fl (9.6-12.3); MONO # 0.5 10*3/uL (0.1-1.0); MONO % 3.9 % (3.0-9.0); NEUT # 11.6 10*3/uL (2.3-7.9); NEUT % 88.1 % (47.0-73.0); PLATELET COUNT AUTOMATED 290 10*3/uL (130-400); RED BLOOD COUNT 3.76 10*6/uL (4.10-5.10); RED CELL DISTRI WIDTH 14.8 % (0-14.5); WHITE BLOOD COUNT 13.2 10*3/uL (4.8-10.8)
[2024-05-12 06:32] LABS: BUN 11 mg/dl (9-23); CHLORIDE 93 mmol/L (98-107); POTASSIUM 4.4 mmol/L (3.4-5.1)
[2024-05-12 07:31] LABS: ABG O2 SATURATION 98.1 % (94.0-98.0); ARTERIAL BLOOD GAS PH 7.352 (7.350-7.450); ARTERIAL BLOOD GAS PO2 119.9 mmHg (83.0-108.0)
[2024-05-12 07:35] LABS: ABG BASE EXCESS 11.2 mmol/L (-2.0-3.0)
[2024-05-12 08:00] VITALS: BP 112/77
[2024-05-12] MEDS ORDERED: FERROUS SULFATE 325 MG TAB PO SCH (10:00)
[2024-05-12] MEDS ORDERED: Sertraline Hydrochloride 50 MG TAB PO SCH (10:00)
[2024-05-12] MEDS ORDERED: ATORVASTATIN CALCIUM 40 MG TABLET PO SCH (10:00)
[2024-05-12 12:00] VITALS: BP 117/81
[2024-05-12 16:00] VITALS: BP 111/63
[2024-05-12 20:00] VITALS: BP 113/73
[2024-05-12] MEDS ORDERED: MICONAZOLE NITRATE 2% 75 GM BOT T SCH (22:00)
[2024-05-12 23:37] LABS: ABG O2 SATURATION 98.1 % (94.0-98.0); ARTERIAL BLOOD GAS PH 7.364 (7.350-7.450); ARTERIAL BLOOD GAS PO2 119.6 mmHg (83.0-108.0)
[2024-05-12 23:40] LABS: ABG BASE EXCESS 13.9 mmol/L (-2.0-3.0)
[2024-05-12 23:43] LABS: HEMATOCRIT 34.9 % (37.0-47.0); MEAN CELL VOLUME 94.8 fl (81.0-99.0); MEAN CORPUSCULAR HGB 28.5 pg (27.0-31.0); MEAN CORPUSCULAR HGB CONC 30.1 g/dl (33.0-37.0); PLATELET COUNT AUTOMATED 310 10*3/uL (130-400); RED BLOOD COUNT 3.68 10*6/uL (4.10-5.10); RED CELL DISTRI WIDTH 14.8 % (0-14.5); WHITE BLOOD COUNT 15.4 10*3/uL (4.8-10.8)
[2024-05-12 23:45] LABS: MANUAL DIFF REFLEX YES
[2024-05-13] VITALS: BP 126/71; BP 130/65
[2024-05-13 00:04] LABS: BUN 14 mg/dl (9-23); CHLORIDE 91 mmol/L (98-107); POTASSIUM 4.4 mmol/L (3.4-5.1)
[2024-05-13 00:12] LABS: PLATELET SUFFICIENCY NORMAL (NORMAL); TOTAL CELLS COUNTED 100 #CELLS
[2024-05-13 06:30] LABS: BASO % 0.1 % (0.0-1.0); HEMATOCRIT 33.9 % (37.0-47.0); MEAN CELL VOLUME 94.4 fl (81.0-99.0); MEAN CORPUSCULAR HGB 28.1 pg (27.0-31.0); MEAN CORPUSCULAR HGB CONC 29.8 g/dl (33.0-37.0); MEAN PLATELET VOLUME 10.5 fl (9.6-12.3); MONO # 0.9 10*3/uL (0.1-1.0); MONO % 5.7 % (3.0-9.0); NEUT # 12.8 10*3/uL (2.3-7.9); NEUT % 82.8 % (47.0-73.0); PLATELET COUNT AUTOMATED 289 10*3/uL (130-400); RED BLOOD COUNT 3.59 10*6/uL (4.10-5.10); RED CELL DISTRI WIDTH 14.7 % (0-14.5); WHITE BLOOD COUNT 15.5 10*3/uL (4.8-10.8)
[2024-05-13 08:00] VITALS: BP 101/61
[2024-05-13 08:56] LABS: BUN 12 mg/dl (9-23); CHLORIDE 95 mmol/L (98-107); POTASSIUM 4.3 mmol/L (3.4-5.1)
[2024-05-13 12:00] VITALS: BP 106/55
[2024-05-13 16:00] VITALS: BP 119/66
[2024-05-13 20:00] VITALS: BP 91/71
[2024-05-14] VITALS: BP 108/67
[2024-05-14 06:20] LABS: BASO % 0.1 % (0.0-1.0); EOS % 0.2 % (1.0-4.0); HEMATOCRIT 35.9 % (37.0-47.0); MEAN CELL VOLUME 95.2 fl (81.0-99.0); MEAN CORPUSCULAR HGB 28.6 pg (27.0-31.0); MEAN CORPUSCULAR HGB CONC 30.1 g/dl (33.0-37.0); MEAN PLATELET VOLUME 10.6 fl (9.6-12.3); MONO % 6.8 % (3.0-9.0); NEUT # 11.4 10*3/uL (2.3-7.9); NEUT % 82.1 % (47.0-73.0); PLATELET COUNT AUTOMATED 322 10*3/uL (130-400); RED BLOOD COUNT 3.77 10*6/uL (4.10-5.10); RED CELL DISTRI WIDTH 14.7 % (0-14.5); WHITE BLOOD COUNT 13.9 10*3/uL (4.8-10.8)
[2024-05-14 06:54] LABS: BUN 19 mg/dl (9-23); CHLORIDE 93 mmol/L (98-107)
[2024-05-14 08:00] VITALS: BP 116/70
[2024-05-14] MEDS ORDERED: LORazepam 2 MG/ML VIAL IV ONE (11:25)
[2024-05-14 11:42] LABS: ABG O2 SATURATION 98.7 % (94.0-98.0); ARTERIAL BLOOD GAS PH 7.347 (7.350-7.450); ARTERIAL BLOOD GAS PO2 125.1 mmHg (83.0-108.0)
[2024-05-14] MEDS ORDERED: LORazepam 2 MG/ML VIAL ONE (11:44)
[2024-05-14 11:45] LABS: ABG BASE EXCESS 14.2 mmol/L (-2.0-3.0)
[2024-05-14 11:58] LABS: BASO % 0.2 % (0.0-1.0); EOS % 0.1 % (1.0-4.0); HEMATOCRIT 38.5 % (37.0-47.0); MEAN CELL VOLUME 95.5 fl (81.0-99.0); MEAN CORPUSCULAR HGB CONC 29.4 g/dl (33.0-37.0); MEAN PLATELET VOLUME 10.1 fl (9.6-12.3); MONO # 1.4 10*3/uL (0.1-1.0); NEUT # 11.7 10*3/uL (2.3-7.9); NEUT % 75.1 % (47.0-73.0); PLATELET COUNT AUTOMATED 343 10*3/uL (130-400); RED BLOOD COUNT 4.03 10*6/uL (4.10-5.10); RED CELL DISTRI WIDTH 14.6 % (0-14.5); WHITE BLOOD COUNT 15.6 10*3/uL (4.8-10.8)
[2024-05-14 12:00] VITALS: BP 116/74
[2024-05-14 12:26] LABS: BUN 17 mg/dl (9-23); CHLORIDE 91 mmol/L (98-107); POTASSIUM 4.2 mmol/L (3.4-5.1)
[2024-05-14 16:00] VITALS: BP 125/52
[2024-05-14 20:00] VITALS: BP 122/84
[2024-05-14] MEDS ORDERED: LEVETIRACETAM IN NACL (ISO-OS) 100 ML IV SCH (22:00)
[2024-05-15] VITALS: BP 128/89
[2024-05-15 06:05] LABS: BASO % 0.2 % (0.0-1.0); EOS % 0.3 % (1.0-4.0); HEMATOCRIT 36.5 % (37.0-47.0); MEAN CELL VOLUME 93.6 fl (81.0-99.0); MEAN CORPUSCULAR HGB 28.2 pg (27.0-31.0); MEAN CORPUSCULAR HGB CONC 30.1 g/dl (33.0-37.0); MEAN PLATELET VOLUME 10.5 fl (9.6-12.3); MONO # 1.1 10*3/uL (0.1-1.0); NEUT # 8.4 10*3/uL (2.3-7.9); NEUT % 67.3 % (47.0-73.0); PLATELET COUNT AUTOMATED 356 10*3/uL (130-400); RED CELL DISTRI WIDTH 14.6 % (0-14.5); WHITE BLOOD COUNT 12.5 10*3/uL (4.8-10.8)
[2024-05-15 06:14] VITALS: BP 137/78
[2024-05-15 08:00] VITALS: BP 101/60
[2024-05-15 09:12] LABS: BUN 17 mg/dl (9-23); CHLORIDE 97 mmol/L (98-107); POTASSIUM 4.6 mmol/L (3.4-5.1)
[2024-05-15] MEDS ORDERED: methylPREDNISolone sod succ 40 MG VIAL IV SCH (10:00)
[2024-05-15 11:03] LABS: BASO # 0.1 10*3/uL (0.0-0.1); BASO % 0.3 % (0.0-1.0); EOS # 0.1 10*3/uL (0.0-0.4); EOS % 0.5 % (1.0-4.0); MEAN CORPUSCULAR HGB 28.3 pg (27.0-31.0); MEAN CORPUSCULAR HGB CONC 29.5 g/dl (33.0-37.0); MEAN PLATELET VOLUME 9.7 fl (9.6-12.3); MONO # 0.9 10*3/uL (0.1-1.0); NEUT # 12.2 10*3/uL (2.3-7.9); NEUT % 81.5 % (47.0-73.0); PLATELET COUNT AUTOMATED 352 10*3/uL (130-400); RED BLOOD COUNT 3.96 10*6/uL (4.10-5.10); RED CELL DISTRI WIDTH 14.7 % (0-14.5)
[2024-05-15 12:00] VITALS: BP 106/65
[2024-05-15] MEDS ORDERED: GADOTERATE MEGLUMINE 10 MMOL/20 ML VIAL IV ONE (13:01)
== END 2024-05-15 18:20 | disposition home health service (06) | DRG 720 ==
LOC: ED 22:05 → 4E 05-11 01:28 → EDHOLD 05-11 01:28 → 4E 05-11 11:56
PROVIDERS: Internal Medicine; Internal Medicine Critical Care Medicine; Student in an Organized Health Care Education/Training Program; ADMIT Family Medicine; ATTEND Family Medicine
PROC: 5A09357 Assistance with Respiratory Ventilation, Less than 24 Consecutive Hours, Continuous Positive Airway Pressure (ICD-10-PCS; principal; 2024-05-11)
PROC: 5A09357 Assistance with Respiratory Ventilation, Less than 24 Consecutive Hours, Continuous Positive Airway Pressure (ICD-10-PCS; 2024-05-12)
PROC: 5A09357 Assistance with Respiratory Ventilation, Less than 24 Consecutive Hours, Continuous Positive Airway Pressure (ICD-10-PCS; 2024-05-13)
PROC: 5A09357 Assistance with Respiratory Ventilation, Less than 24 Consecutive Hours, Continuous Positive Airway Pressure (ICD-10-PCS; 2024-05-14)
DX: A41.9 Sepsis, unspecified organism (principal); J96.22 Acute and chronic respiratory failure with hypercapnia; J96.21 Acute and chronic respiratory failure with hypoxia; I50.33 Acute on chronic diastolic (congestive) heart failure; E87.20 Acidosis, unspecified; E87.3 Alkalosis; G40.909 Epilepsy, unspecified, not intractable, without status epilepticus; J44.1 Chronic obstructive pulmonary disease with (acute) exacerbation; J44.0 Chronic obstructive pulmonary disease with (acute) lower respiratory infection; J20.9 Acute bronchitis, unspecified; F32.A Depression, unspecified; D64.9 Anemia, unspecified; S31.829A Unspecified open wound of left buttock, initial encounter; S31.819A Unspecified open wound of right buttock, initial encounter; R65.20 Severe sepsis without septic shock; E66.01 Morbid (severe) obesity due to excess calories; L03.116 Cellulitis of left lower limb; L03.115 Cellulitis of right lower limb; R73.9 Hyperglycemia, unspecified; Z88.2 Allergy status to sulfonamides; Z88.8 Allergy status to other drugs, medicaments and biological substances; Z71.6 Tobacco abuse counseling; Z91.09 Other allergy status, other than to drugs and biological substances; Z68.39 Body mass index [BMI] 39.0-39.9, adult; Z79.899 Other long term (current) drug therapy; Z90.49 Acquired absence of other specified parts of digestive tract; Z87.891 Personal history of nicotine dependence; Z82.3 Family history of stroke; X58.XXXA Exposure to other specified factors, initial encounter; Y93.89 Activity, other specified; Y92.89 Other specified places as the place of occurrence of the external cause; Y99.8 Other external cause status

== ENCOUNTER 2024-08-24 19:19 | Inpatient (IN) | payer MEDICAID ==
[~2024-08-24] VITALS: Ht 162.5 cm; Wt 102.5 kg
[~2024-08-24 19:19] MED LIST changes: +DEXAMETHASONE6 MG PO; +ELIQUIS5 M1 PO; +KEPPRA1000 MG PO; +LAMICTAL25 MG PO; +VANCOCIN125 M1 PO; +VIBRA-TAB100 MG PO
[2024-08-24 19:21] VITALS: BP 137/65
[2024-08-24 21:01] LABS: HEMATOCRIT 31.3 % (37.0-47.0); MEAN CELL VOLUME 97.5 fl (81.0-99.0); MEAN CORPUSCULAR HGB CONC 29.7 g/dl (33.0-37.0); MEAN PLATELET VOLUME 9.6 fl (9.6-12.3); PLATELET COUNT AUTOMATED 458 10*3/uL (130-400); RED BLOOD COUNT 3.21 10*6/uL (4.10-5.10); WHITE BLOOD COUNT 15.5 10*3/uL (4.8-10.8)
[2024-08-24 21:05] LABS: MANUAL DIFF REFLEX YES
[2024-08-24 21:22] LABS: ALKALINE PHOSPHATASE 112 U/L (46-116); BUN 8 mg/dl (9-23); CHLORIDE 102 mmol/L (98-107); PLATELET SUFFICIENCY HIGH (NORMAL); POTASSIUM 4.8 mmol/L (3.4-5.1); SGPT/ALT 17 U/L (5-49); TOTAL CELLS COUNTED 100 #CELLS; TOTAL PROTEIN 5.9 gm/dL (6.0-8.0)
[2024-08-24 21:23] LABS: OVALOCYTES FEW
[2024-08-24] MEDS ORDERED: Magnesium Hydroxide 30 ML UDC PO PRN (23:15)
[2024-08-24] MEDS ORDERED: Ondansetron Hydrochloride 4 MG/2 ML VIAL IV PRN (23:15)
[2024-08-24] MEDS ORDERED: BISACODYL 10 MG SUPP R PRN (23:15)
[2024-08-24] MEDS ORDERED: ACETAMINOPHEN 650 MG SUPP R PRN (23:15)
[2024-08-24] MEDS ORDERED: ACETAMINOPHEN 325 MG TAB PO PRN (23:15)
[2024-08-24] MEDS ORDERED: BISACODYL 5 MG TAB PO PRN (23:15)
[2024-08-25] VITALS: BP 132/76
[2024-08-25 00:30] VITALS: BP 132/76
[2024-08-25] MEDS ORDERED: AZITHROMYCIN 250 ML IV SCH (00:35)
[2024-08-25] MEDS ORDERED: cefTRIAXone Sodium 1 GM in SYRINGE INFUSION 10 ML IV SCH (00:35)
[2024-08-25] MEDS ORDERED: DEXTROSE 10 % IN WATER 250 ML IV PRN (00:40)
[2024-08-25] MEDS ORDERED: Albuterol Sulf/Ipratropium 3 ML VIAL NEB SCH (00:40)
[2024-08-25] MEDS ORDERED: FUROSEMIDE 40 MG IV SCH (01:25)
[2024-08-25] MEDS ORDERED: Doxycycline Hyclate 100 MG TAB PO SCH (05:00)
[2024-08-25] MEDS ORDERED: VANCOMYCIN HCL 125 MG CAPSULE PO SCH ×2 (05:50→10:00)
[2024-08-25] MEDS ORDERED: NYSTATIN 15 GM BOT T SCH ×2 (06:00→22:00)
[2024-08-25] MEDS ORDERED: Pantoprazole Sodium 40 MG TAB PO SCH (06:00)
[2024-08-25 07:05] LABS: BASO % 0.2 % (0.0-1.0); EOS % 0.1 % (1.0-4.0); HEMATOCRIT 30.8 % (37.0-47.0); MEAN CELL VOLUME 98.4 fl (81.0-99.0); MEAN CORPUSCULAR HGB 28.8 pg (27.0-31.0); MEAN CORPUSCULAR HGB CONC 29.2 g/dl (33.0-37.0); MEAN PLATELET VOLUME 9.4 fl (9.6-12.3); MONO # 0.9 10*3/uL (0.1-1.0); MONO % 7.1 % (3.0-9.0); NEUT # 10.3 10*3/uL (2.3-7.9); NEUT % 80.4 % (47.0-73.0); PLATELET COUNT AUTOMATED 416 10*3/uL (130-400); RED BLOOD COUNT 3.13 10*6/uL (4.10-5.10); RED CELL DISTRI WIDTH 17.1 % (0-14.5); WHITE BLOOD COUNT 12.8 10*3/uL (4.8-10.8)
[2024-08-25 07:15] LABS: ALKALINE PHOSPHATASE 107 U/L (46-116); BUN 7 mg/dl (9-23); CHLORIDE 103 mmol/L (98-107); POTASSIUM 4.7 mmol/L (3.4-5.1); SGPT/ALT 17 U/L (5-49); TOTAL PROTEIN 5.4 gm/dL (6.0-8.0)
[2024-08-25] MEDS ORDERED: INSULIN LISPRO 1 UNIT/0.01 ML SQ SCH (07:30)
[2024-08-25 08:00] VITALS: BP 137/88
[2024-08-25 08:12] LABS: ACT PARTIAL THROMBO TIME 20.7 SECONDS (20.0-32.1)
[2024-08-25] MEDS ORDERED: cefTRIAXone Sodium 1 GM VIAL IV ONE (08:57)
[2024-08-25] MEDS ORDERED: SODIUM CHLORIDE 0.9% 50 ML BAG IV ONE (08:57)
[2024-08-25] MEDS ORDERED: FUROSEMIDE 40 MG/4 ML VIAL IV SCH (10:00)
[2024-08-25] MEDS ORDERED: FUROSEMIDE 20 MG TAB PO SCH (10:00)
[2024-08-25] MEDS ORDERED: methylPREDNISolone sod succ 40 MG VIAL IV SCH (10:00)
[2024-08-25] MEDS ORDERED: ATORVASTATIN CALCIUM 40 MG TABLET PO SCH (10:00)
[2024-08-25] MEDS ORDERED: Enoxaparin Sodium 40 MG/0.4 ML SYR SC SCH (10:00)
[2024-08-25] MEDS ORDERED: LEVETIRACETAM 500 MG TAB PO SCH (10:00)
[2024-08-25] MEDS ORDERED: LAMOTRIGINE 25 MG TAB PO SCH (10:00)
[2024-08-25] MEDS ORDERED: Sertraline Hydrochloride 50 MG TAB PO SCH (10:00)
[2024-08-25 12:00] VITALS: BP 138/85
[2024-08-25 13:02] LABS: ABG BASE EXCESS 6.9 mmol/L (-2.0-3.0); ABG O2 SATURATION 97.8 % (94.0-98.0); ARTERIAL BLOOD GAS PH 7.382 (7.350-7.450); ARTERIAL BLOOD GAS PO2 112.9 mmHg (83.0-108.0)
[2024-08-25 16:00] VITALS: BP 121/74
[2024-08-25 20:00] VITALS: BP 111/49
[2024-08-25] MEDS ORDERED: risperiDONE 2 MG TAB PO SCH (22:00)
[2024-08-25 22:05] LABS: BILIRUBIN Negative (Negative); BLOOD Negative (Negative); CLARITY Clear (Clear); COLOR Yellow (Yellow); GLUCOSE Negative (Negative); KETONE Negative (Negative); LEUKO ESTERASE Trace (Negative); NITRITE Negative (Negative); PH 5.5 (4.5-8.0); SPECIFIC GRAVITY 1.015 (1.001-1.030); UROBILINOGEN 0.2 E.U./dl (0.0-1.0)
[2024-08-25 22:17] LABS: BACTERIA TRACE; YEAST 3+
[2024-08-26] VITALS: BP 111/83
[2024-08-26 04:49] LABS: BUN 8 mg/dl (9-23); CHLORIDE 102 mmol/L (98-107); POTASSIUM 4.6 mmol/L (3.4-5.1)
[2024-08-26 06:33] LABS: BASO # 0.1 10*3/uL (0.0-0.1); BASO % 0.4 % (0.0-1.0); EOS # 0.2 10*3/uL (0.0-0.4); EOS % 1.9 % (1.0-4.0); HEMATOCRIT 28.2 % (37.0-47.0); MEAN CELL VOLUME 97.9 fl (81.0-99.0); MEAN CORPUSCULAR HGB 28.8 pg (27.0-31.0); MEAN CORPUSCULAR HGB CONC 29.4 g/dl (33.0-37.0); MEAN PLATELET VOLUME 9.6 fl (9.6-12.3); MONO # 0.8 10*3/uL (0.1-1.0); NEUT % 67.5 % (47.0-73.0); PLATELET COUNT AUTOMATED 383 10*3/uL (130-400); RED BLOOD COUNT 2.88 10*6/uL (4.10-5.10); RED CELL DISTRI WIDTH 17.3 % (0-14.5); WHITE BLOOD COUNT 11.8 10*3/uL (4.8-10.8)
[2024-08-26 08:00] VITALS: BP 112/61
[2024-08-26 12:00] VITALS: BP 112/64
[2024-08-26] MEDS ORDERED: VIBRA-TAB100 MG PO (12:17)
[2024-08-26 16:00] VITALS: BP 128/74
== END 2024-08-26 16:24 | disposition home or self-care (01) | DRG 133 ==
LOC: ED 19:19 → EDHOLD 22:41 → 5E 22:41
PROVIDERS: Nurse Practitioner Family; ADMIT Internal Medicine; ATTEND Internal Medicine
DX: J96.21 Acute and chronic respiratory failure with hypoxia (principal); I50.33 Acute on chronic diastolic (congestive) heart failure; E44.0 Moderate protein-calorie malnutrition; F17.210 Nicotine dependence, cigarettes, uncomplicated; J44.1 Chronic obstructive pulmonary disease with (acute) exacerbation; D64.9 Anemia, unspecified; D75.839 Thrombocytosis, unspecified; Z20.822 Contact with and (suspected) exposure to COVID-19; R79.89 Other specified abnormal findings of blood chemistry; E11.65 Type 2 diabetes mellitus with hyperglycemia; J96.22 Acute and chronic respiratory failure with hypercapnia; E66.01 Morbid (severe) obesity due to excess calories; F31.9 Bipolar disorder, unspecified; Z71.6 Tobacco abuse counseling; Z90.49 Acquired absence of other specified parts of digestive tract; Z82.3 Family history of stroke; Z88.2 Allergy status to sulfonamides; Z91.030 Bee allergy status; Z79.899 Other long term (current) drug therapy; Z68.38 Body mass index [BMI] 38.0-38.9, adult

== ENCOUNTER 2024-09-06 23:27 | Inpatient (IN) | payer MEDICAID ==
[~2024-09-06] VITALS: Ht 162.5 cm; Wt 99.8 kg
[~2024-09-06 23:27] MED LIST changes: -KEPPRA1000 MG PO
[2024-09-06 23:35] VITALS: BP 106/67
[2024-09-07 00:23] LABS: BASO % 0.2 % (0.0-1.0); EOS % 0.2 % (1.0-4.0); HEMATOCRIT 36.9 % (37.0-47.0); MEAN CELL VOLUME 98.1 fl (81.0-99.0); MEAN CORPUSCULAR HGB 28.7 pg (27.0-31.0); MEAN CORPUSCULAR HGB CONC 29.3 g/dl (33.0-37.0); MEAN PLATELET VOLUME 9.5 fl (9.6-12.3); MONO # 0.9 10*3/uL (0.1-1.0); NEUT # 11.8 10*3/uL (2.3-7.9); NEUT % 83.4 % (47.0-73.0); PLATELET COUNT AUTOMATED 447 10*3/uL (130-400); RED BLOOD COUNT 3.76 10*6/uL (4.10-5.10); RED CELL DISTRI WIDTH 16.4 % (0-14.5); WHITE BLOOD COUNT 14.1 10*3/uL (4.8-10.8)
[2024-09-07 00:34] LABS: ACT PARTIAL THROMBO TIME 21.7 SECONDS (20.0-32.1)
[2024-09-07 00:47] LABS: ALKALINE PHOSPHATASE 115 U/L (46-116); BUN 8 mg/dl (9-23); CHLORIDE 99 mmol/L (98-107); POTASSIUM 4.5 mmol/L (3.4-5.1); SGPT/ALT 11 U/L (5-49); TOTAL PROTEIN 6.3 gm/dL (6.0-8.0)
[2024-09-07] MEDS ORDERED: FUROSEMIDE 40 MG/4 ML VIAL IV ONE (02:20)
[2024-09-07] MEDS ORDERED: VANCOMYCIN HCL 125 MG CAPSULE PO ONE (03:25)
[2024-09-07] MEDS ORDERED: BISACODYL 10 MG SUPP R PRN (03:55)
[2024-09-07] MEDS ORDERED: Ondansetron Hydrochloride 4 MG/2 ML VIAL IV PRN (03:55)
[2024-09-07] MEDS ORDERED: ACETAMINOPHEN 650 MG SUPP R PRN (03:55)
[2024-09-07] MEDS ORDERED: Acetaminophen/Hydrocodone 5 MG/325 MG TABLET PO PRN (03:55)
[2024-09-07] MEDS ORDERED: MORPHINE Sulfate 2 MG/ML SYR IV PRN (03:55)
[2024-09-07] MEDS ORDERED: BISACODYL 5 MG TAB PO PRN (03:55)
[2024-09-07] MEDS ORDERED: TEMAZEPAM 15 MG CAP PO PRN (03:55)
[2024-09-07] MEDS ORDERED: Magnesium Hydroxide 30 ML UDC PO PRN (03:55)
[2024-09-07] MEDS ORDERED: ACETAMINOPHEN 325 MG TAB PO PRN (03:55)
[2024-09-07 05:18] LABS: BUN 7 mg/dl (9-23); CHLORIDE 102 mmol/L (98-107); POTASSIUM 4.8 mmol/L (3.4-5.1)
[2024-09-07 06:04] VITALS: BP 124/71
[2024-09-07 07:08] LABS: BASO % 0.2 % (0.0-1.0); EOS # 0.2 10*3/uL (0.0-0.4); EOS % 1.6 % (1.0-4.0); HEMATOCRIT 35.2 % (37.0-47.0); MEAN CELL VOLUME 97.2 fl (81.0-99.0); MEAN CORPUSCULAR HGB 28.5 pg (27.0-31.0); MEAN CORPUSCULAR HGB CONC 29.3 g/dl (33.0-37.0); MEAN PLATELET VOLUME 9.5 fl (9.6-12.3); MONO # 0.9 10*3/uL (0.1-1.0); MONO % 6.2 % (3.0-9.0); NEUT # 10.1 10*3/uL (2.3-7.9); NEUT % 73.9 % (47.0-73.0); PLATELET COUNT AUTOMATED 420 10*3/uL (130-400); RED BLOOD COUNT 3.62 10*6/uL (4.10-5.10); RED CELL DISTRI WIDTH 16.5 % (0-14.5); WHITE BLOOD COUNT 13.6 10*3/uL (4.8-10.8)
[2024-09-07] MEDS ORDERED: Albuterol Sulf/Ipratropium 3 ML VIAL NEB SCH (07:20)
[2024-09-07] MEDS ORDERED: AZITHROMYCIN 250 ML IV SCH (07:30)
[2024-09-07 07:57] LABS: ABG O2 SATURATION 98.5 % (94.0-98.0); ARTERIAL BLOOD GAS PH 7.296 (7.350-7.450)
[2024-09-07 08:00] LABS: ABG BASE EXCESS 8.8 mmol/L (-2.0-3.0)
[2024-09-07 08:07] VITALS: BP 102/75
[2024-09-07] MEDS ORDERED: hydrOXYzine pamoate 25 MG CAP PO PRN (08:25)
[2024-09-07] MEDS ORDERED: DEXTROSE 10 % IN WATER 250 ML IV PRN (08:25)
[2024-09-07] MEDS ORDERED: cefTRIAXone Sodium 10 ML IV SCH (08:30)
[2024-09-07] MEDS ORDERED: APIXABAN 5 MG TAB PO SCH (10:00)
[2024-09-07] MEDS ORDERED: GUAIFENESIN 600 MG TAB ER PO SCH (10:00)
[2024-09-07] MEDS ORDERED: LEVETIRACETAM 500 MG TAB PO SCH (10:00)
[2024-09-07] MEDS ORDERED: Sertraline Hydrochloride 50 MG TAB PO SCH ×2 (10:00→22:00)
[2024-09-07] MEDS ORDERED: FUROSEMIDE 40 MG/4 ML VIAL IV SCH (10:00)
[2024-09-07] MEDS ORDERED: ATORVASTATIN CALCIUM 40 MG TABLET PO SCH ×2 (10:00→22:00)
[2024-09-07] MEDS ORDERED: LAMOTRIGINE 25 MG TAB PO SCH (10:00)
[2024-09-07] MEDS ORDERED: methylPREDNISolone sod succ 40 MG VIAL IV SCH (10:00)
[2024-09-07] MEDS ORDERED: LEVETIRACETAM 250 MG TAB PO SCH (10:00)
[2024-09-07] MEDS ORDERED: FAMOTIDINE 20 MG TAB PO SCH (10:00)
[2024-09-07 10:15] VITALS: BP 123/68
[2024-09-07] MEDS ORDERED: INSULIN LISPRO 1 UNIT/0.01 ML SQ SCH (11:30)
[2024-09-07] MEDS ORDERED: BUMETANIDE1 MG PO (11:42)
[2024-09-07] MEDS ORDERED: NATURE'S BLEND F1 MG PO (11:52)
[2024-09-07 12:00] VITALS: BP 129/62
[2024-09-07] MEDS ORDERED: VANCOMYCIN/WATER FOR INJ (PEG) 250 ML IV SCH (14:00)
[2024-09-07 16:00] VITALS: BP 116/82
[2024-09-07] MEDS ORDERED: Menthol/Zinc Oxide 4 GM THIN T SCH (18:00)
[2024-09-07 20:17] VITALS: BP 92/57
[2024-09-07] MEDS ORDERED: NYSTATIN 15 GM BOT T SCH (22:00)
[2024-09-07] MEDS ORDERED: Insulin Glargine, Recombinan 1 UNIT/0.01 ML SC SCH (22:00)
[2024-09-07] MEDS ORDERED: risperiDONE 2 MG TAB PO SCH (22:00)
[2024-09-08] VITALS: BP 100/60
[2024-09-08] MEDS ORDERED: VANCOMYCIN HCL 250 MG CAPSULE PO SCH
[2024-09-08 08:00] VITALS: BP 121/66
[2024-09-08 12:00] VITALS: BP 104/64
[2024-09-08] MEDS ORDERED: FOAM BANDAGE HEEL T ONE (14:15)
[2024-09-08] MEDS ORDERED: HEEL PROTECTOR DEVICE ONE (14:16)
[2024-09-08 16:00] VITALS: BP 110/66
[2024-09-08 20:00] VITALS: BP 104/50
[2024-09-08] MEDS ORDERED: methylPREDNISolone sod succ 125 MG VIAL IV SCH (22:00)
[2024-09-08] MEDS ORDERED: NYSTATIN 15 GM BOT T SCH (22:00)
[2024-09-09] VITALS: BP 131/65
[2024-09-09] MEDS ORDERED: VANCOCIN HCL P125 MG PO (01:20)
[2024-09-09 05:49] LABS: BUN 20 mg/dl (9-23); CHLORIDE 97 mmol/L (98-107); POTASSIUM 4.6 mmol/L (3.4-5.1)
[2024-09-09 06:00] LABS: HEMATOCRIT 33.5 % (37.0-47.0); MEAN CELL VOLUME 96.5 fl (81.0-99.0); MEAN CORPUSCULAR HGB 29.1 pg (27.0-31.0); MEAN CORPUSCULAR HGB CONC 30.1 g/dl (33.0-37.0); MEAN PLATELET VOLUME 9.7 fl (9.6-12.3); PLATELET COUNT AUTOMATED 423 10*3/uL (130-400); RED BLOOD COUNT 3.47 10*6/uL (4.10-5.10); WHITE BLOOD COUNT 22.7 10*3/uL (4.8-10.8)
[2024-09-09 06:12] LABS: MANUAL DIFF REFLEX YES
[2024-09-09 07:43] LABS: TOTAL CELLS COUNTED 100 #CELLS
[2024-09-09 07:44] LABS: PLATELET SUFFICIENCY HIGH (NORMAL)
[2024-09-09 08:00] VITALS: BP 133/80
[2024-09-09 12:00] VITALS: BP 119/68
[2024-09-09 16:00] VITALS: BP 101/64
[2024-09-09] MEDS ORDERED: BUMETANIDE 1 MG TAB PO SCH (18:00)
[2024-09-09 20:00] VITALS: BP 124/77
[2024-09-10] VITALS: BP 103/67
[2024-09-10 08:00] VITALS: BP 125/76
[2024-09-10 08:49] LABS: BASO % 0.2 % (0.0-1.0); EOS # 0.4 10*3/uL (0.0-0.4); EOS % 2.3 % (1.0-4.0); HEMATOCRIT 37.6 % (37.0-47.0); MEAN CELL VOLUME 96.9 fl (81.0-99.0); MEAN CORPUSCULAR HGB 29.1 pg (27.0-31.0); MEAN CORPUSCULAR HGB CONC 30.1 g/dl (33.0-37.0); MEAN PLATELET VOLUME 9.6 fl (9.6-12.3); MONO # 0.9 10*3/uL (0.1-1.0); NEUT # 13.2 10*3/uL (2.3-7.9); NEUT % 75.5 % (47.0-73.0); PLATELET COUNT AUTOMATED 399 10*3/uL (130-400); RED BLOOD COUNT 3.88 10*6/uL (4.10-5.10); RED CELL DISTRI WIDTH 16.2 % (0-14.5); WHITE BLOOD COUNT 17.5 10*3/uL (4.8-10.8)
[2024-09-10 09:08] LABS: BUN 17 mg/dl (9-23); CHLORIDE 93 mmol/L (98-107); POTASSIUM 3.9 mmol/L (3.4-5.1)
[2024-09-10] MEDS ORDERED: VANCOCIN HCL P125 MG PO (14:55)
== END 2024-09-10 16:01 | disposition home health service (06) | DRG 720 ==
LOC: ED 23:27 → 4E 09-07 03:20 → EDHOLD 09-07 03:20 → 4E 09-07 09:31
PROVIDERS: Emergency Medicine; Internal Medicine; Student in an Organized Health Care Education/Training Program; ADMIT Family Medicine; ATTEND Family Medicine
PROC: 5A09357 Assistance with Respiratory Ventilation, Less than 24 Consecutive Hours, Continuous Positive Airway Pressure (ICD-10-PCS; principal; 2024-09-07)
PROC: 5A09357 Assistance with Respiratory Ventilation, Less than 24 Consecutive Hours, Continuous Positive Airway Pressure (ICD-10-PCS; 2024-09-08)
PROC: 5A09357 Assistance with Respiratory Ventilation, Less than 24 Consecutive Hours, Continuous Positive Airway Pressure (ICD-10-PCS; 2024-09-09)
DX: A41.9 Sepsis, unspecified organism (principal); J96.02 Acute respiratory failure with hypercapnia; I50.23 Acute on chronic systolic (congestive) heart failure; G93.41 Metabolic encephalopathy; E44.0 Moderate protein-calorie malnutrition; A04.72 Enterocolitis due to Clostridium difficile, not specified as recurrent; J44.1 Chronic obstructive pulmonary disease with (acute) exacerbation; E66.9 Obesity, unspecified; D84.9 Immunodeficiency, unspecified; R65.20 Severe sepsis without septic shock; F31.9 Bipolar disorder, unspecified; D75.839 Thrombocytosis, unspecified; J45.909 Unspecified asthma, uncomplicated; E11.65 Type 2 diabetes mellitus with hyperglycemia; I25.10 Atherosclerotic heart disease of native coronary artery without angina pectoris; Z66 Do not resuscitate; Z20.822 Contact with and (suspected) exposure to COVID-19; Z82.3 Family history of stroke; Z88.2 Allergy status to sulfonamides; Z91.030 Bee allergy status; Z79.899 Other long term (current) drug therapy; Z90.49 Acquired absence of other specified parts of digestive tract; Z79.51 Long term (current) use of inhaled steroids; Z79.4 Long term (current) use of insulin; Z79.84 Long term (current) use of oral hypoglycemic drugs; Z68.39 Body mass index [BMI] 39.0-39.9, adult